=== PATIENT | male | born 1950 | race Caucasian/White ===

== ENCOUNTER 2025-10-25 16:00 | Inpatient (IN) | payer MEDICARE, SELFPAY ==
--- NOTE | 2025-10-25 16:14 | XRR_ITS ---
PROCEDURE INFORMATION: Exam: XR Right Hip Exam date and time: 10/25/2025 4:25 PM Age: 75 years old Clinical indication: Injury or trauma; Fall; Blunt trauma (contusions or hematomas); Right; Hip TECHNIQUE: Imaging protocol: Radiologic exam of the right hip. Views: 1 view hip with pelvis when performed. COMPARISON: No relevant prior studies available. FINDINGS: Bones/joints: Nondisplaced superomedial right acetabular fracture. Nondisplaced inferior pubic ramus fracture. Nondisplaced parasymphyseal pubic fracture. Moderate to severe hip osteoarthritis. Soft tissues: Unremarkable. XR/XR hip RT 2-3V wo/w pel* [id number] IMPRESSION: 1. Nondisplaced fractures involving the right inferior pubic ramus, parasymphyseal pubis, and acetabulum. 2. 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
--- NOTE | 2025-10-25 16:14 | XRR_ITS ---
PROCEDURE INFORMATION: Exam: XR Chest Exam date and time: 10/25/2025 4:20 PM Age: 75 years old Clinical indication: Injury or trauma; Fall; Blunt trauma (contusions or hematomas) TECHNIQUE: Imaging protocol: Radiologic exam of the chest. Views: 1 view. COMPARISON: No relevant prior studies available. FINDINGS: Lungs: Unremarkable. No consolidation. Pleural spaces: Unremarkable. No pleural effusion. No pneumothorax. Heart/Mediastinum: Unremarkable. No cardiomegaly. Bones/joints: Partially visualized displaced proximal right humerus fracture. Degenerative changes along the spine and shoulders. XR/XR chest 1V portable [id number] IMPRESSION: 1. No acute cardiopulmonary findings. 2. Partially visualized displaced proximal right humerus fracture.
--- NOTE | 2025-10-25 16:14 | XRR_ITS ---
PROCEDURE INFORMATION: Exam: XR Right Shoulder Exam date and time: 10/25/2025 4:22 PM Age: 75 years old Clinical indication: Injury or trauma; Fall; Blunt trauma (contusions or hematomas); Shoulder; Right TECHNIQUE: Imaging protocol: Radiologic exam of the right shoulder. Views: 2 or more views. COMPARISON: CR (CHEST, ) 10/25/2025 4:20 PM FINDINGS: Bones/joints: Comminuted proximal right humerus fracture involves the neck and greater tuberosity with approximately 1 shaft width anteromedial displacement of the dominant distal fragment at the neck. No dislocation. Acromioclavicular joint arthropathy. Soft tissues: Right shoulder soft tissue swelling. XR/XR shoulder RT min 2V* [id number] IMPRESSION: Comminuted displaced proximal right humerus fracture involving the neck and greater tuberosity.
[2025-10-25 16:22] VITALS: BP 85/65; PULSE 73; RESP 18; TEMP 36.6; O2SAT 96
--- NOTE | 2025-10-25 16:23 | ED_ITS ---
Documented by User: Caden Spaulding MD 10/25/25 16:25 HPI - Extremity Problem 2 General: Chief complaint: Extremity Injury, Upper Stated complaint: right shoulder pain s/p fall Time Seen by Provider: 10/25/25 16:05 Source: patient and EMS Mode of arrival: EMS Limitations: no limitations History of Present Illness: 75-year-old male who is here with EMS af ter he fell through a ramp. Patient complains of right shoulder along with right hip pain denies hitting his head denies any neck pain. States his pain is currently an 8 out of 10 has obvious deformity to right shoulder. He denies any loss of consciousness. Related Data Allergies Allergy/AdvReac Type Severity Reaction Status Date / Time No Known Allergies Allergy Verified 10/25/25 16:25 Review of Systems 2 Musc: Reports: extremity pain Physical Exam 2 Const: COMMON NORMALS: patient oriented x3 HENMT: COMMON NORMALS: normocephalic and atraumatic HEAD & SCALP: n ormocephalic and atraumatic Neck/C-Spine: COMMON NORMALS: full ROM and supple Chest: COMMONS NORMALS: normal inspection of the chest Resp: COMMON NORMALS: normal respiratory effort, No retractions, No use of accessory muscles and clear to auscultation bilaterally AUSCULTATION: clear to auscultation bilaterally Cardio: COMMON NORMALS: regular rate, regular rhythm and No murmurs present (Cardio) RATE: regular rate RHYTHM: regular rhythm GI: COMMON NORMALS: Normal to inspection, nondistended, normoactive bowel sounds present, Soft to palpation, non-tender and no masses PALPATION: Yes Soft to palpation Extremity: NARRATIVE EXTREMITY EXAM: Obvious deformity of right shoulder tenderness to touch distal pulse sensation intact tenderness over right hip Neuro: COMMON NORMALS: patient oriented x3, moves all extremities and no focal motor deficits Psych: COMMON NORMALS: mental status grossly normal, Normal thought process present and cooperative THOUGHT PROCESS: Normal thought process present Skin: COMMON NORMALS: no rashes or lesions noted and no wounds GENERAL SKIN EXAM: no rashes or lesions noted Course 2 Vital Signs: Vital signs: Vital Signs Temperature 98.0 F 10/25/25 20:50 Pulse Rate 88 10/25/25 20:50 Respiratory Rate 16 10/25/25 20:50 Blood Pressure 111/66 10/25/25 20:50 Pulse Oximetry 94 10/25/25 20:50 Oxygen Delivery Me thod Room Air 10/25/25 22:33 MDM - Extremity (Nontraumatic) Lab Data 10/26/25 03:23 10/26/25 03:23 Radiology Impressions Chest X-Ray 10/25/25 16:14 IMPRESSION: 1. No acute cardiopulmonary findings. 2. Partially visualized displaced proximal right humerus fracture. Hip/Pelvis X-Ray 10/25/25 16:14 IMPRESSION: 1. Nondisplaced fractures involving the right inferior pubic ramus, parasymphyseal pubis, and acetabulum. 2. 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 Shoulder X-Ray 10/25/25 16:14 IMPRESSION: Comminuted displaced proximal right humerus fracture involving the neck and greater tuberosity. Cervical Spine CT 10/25/25 16:28 IMPRESSION: No acute cervical spine fracture. Chest/Abdomen/Pelvis CT 10/25/25 16:28 IMPRESSION: 1. Comminuted fracture of the right proximal humerus with surrounding inflammatory changes. 2. No intrathoracic posttraumatic changes. IMPRESSION: 1. Fracture of bilateral pubic bones, bilateral inferior pubic rami, left superior pubic ramus and right puboacetabular junction with mild amount of blood in the extraperitoneal pre bladder region. 2. Severe degenerative hip changes. COMMENTS: Consistent with the [employer]'s Incidental Findings Committee white paper (J Am Claire Radiol 2018): Any incidental renal lesion less than 1 cm or classified as too small to characterize, or any incidental cystic renal lesion characterized as simple-appearing, is likely benign. No follow-up imaging is recommended for these lesions per consensus recommendations based on imaging criteria. Head CT 10/25/25 16:28 IMPRESSION: No acute intracranial findings. Forearm X-Ray 10/25/25 18:12 IMPRESSION: Acute distal radial and ulnar fractures as above. Laboratory Results WBC 26.18 10^3/uL (3.29-11.43) H 10/25/25 16:19 RBC 4.39 10^6/uL (3.85-5.65) 10/25/25 16:19 Hgb 13.50 g/dL (11.27-16.99) 10/25/25 16:19 Hct 42.2 % (37-53) 10/25/25 16:19 MCV 96.1 fl (82-101) 10/25/25 16:19 MCH 30.8 pg (27-33) 10/25/25 16:19 MCHC 32.0 g/dL (30-55) 10/25/25 16:19 RDW 12.4 % (12.1-15.1) 10/25/25 16:19 Plt Count 213 10^3/cmm (157-399) 10/25/25 16:19 MPV 10.6 fL (7.4-10.4) H 10/25/25 16:19 Neut % (Auto) 87.1 % 10/25/25 16:19 Lymph % (Auto) 5.1 % 10/25/25 16:19 Tillman % (Auto) 5.6 % 10/25/25 16:19 Eos % (Auto) 0.2 % 10/25/25 16:19 Baso % (Auto) 0.2 % 10/25/25 16:19 Neut # (Auto) 22.81 10^3/uL (1.8-7.7) H 10/25/25 16:19 Lymph # (Auto) 1.3 10^3/uL (0.8-4.8) 10/25/25 16:19 Tillman # (Auto) 1.5 10^3/uL (0.2-0.9) H 10/25/25 16:19 Eos # (Auto) 0.0 10^3/uL (0.0-0.8) 10/25/25 16:19 Baso # (Auto) 0.1 10^3/uL (0.0-0.1) 10/25/25 16:19 Nucleated RBC % (auto) 0 % 10/25/25 16:19 Nucleated RBCs # 0.0 /100WBC 10/25/25 16:19 PT 13.70 SECONDS (12.1-14.9) 10/25/25 18:17 INR 0.98 (0.8-1.2) 10/25/25 18:17 Sodium 140 mmol/L (136-145) 10/25/25 16:19 Potassium 3.3 mmol/L (3.5-5.1) L 10/25/25 16:19 Chloride 101 mmol/L (98-107) 10/25/25 16:19 Carbon Dioxide 20 mmol/L (22-29) L 10/25/25 16:19 Anion Gap 22.3 (5-19) H 10/25/25 16:19 BUN 11 mg/dL (8-23) 10/25/25 16:19 Creatinine 1.3 mg/dL (0.7-1.2) H 10/25/25 16:19 GFR Calculation Not Reportable 10/25/25 16:19 Glucose 168 mg/dL (65-115) H 10/25/25 16:19 Calculated Osmolality 293 mOsm/kg (285-295) 10/25/25 16:19 Calcium 9.4 mg/dL (8.5-10.5) 10/25/25 16:19 Total Bilirubin 0.5 mg/dL (0.15-1.2) 10/25/25 16:19 AST 30 U/L (0-40) 10/25/25 16:19 ALT 24 U/L (0-41) 10/25/25 16:19 Alkaline Phosphatase 85 U/L (40-130) 10/25/25 16:19 Total Protein 6.6 g/dL (6.6-8.7) 10/25/25 16:19 Albumin 4.0 g/dL (3.5-5.2) 10/25/25 16:19 Globulin 2.6 g/dL (1.3-4.6) 10/25/25 16:19 Discharge Plan Discharge Patient Disposition: Admitted As Inpatient Admit Provider: Gabriel Barbosa Clinical Impression: Closed displaced fracture of greater tuberosity of right humerus, initial encounter, Closed bilateral fracture of pubic rami, initial encounter, Closed nondisplaced fracture of right acetabulum, unspecified portion of acetabulum, initial encounter, Closed fracture of distal end of right radius, unspecified fracture morphology, initial encounter, Closed fracture of distal end of right ulna, unspecified fracture morphology, initial encounter Condition: Stable Coding Level of Care Code ED Film Waxer for Chg Fwd Documented by User: Dg Roland DO Christiano 10/26/25 07:11 HPI - Extremity Problem 2 General: Chief complaint: Extremity Injury, Upper Stated complaint: right shoulder pain s/p fall Time Seen by Provider: 10/25/25 16:05 Related Data Allergies Allergy/AdvReac Type Severity Reaction Status Date / Time No Known Allergies Allergy Verified 10/25/25 16:25 Course 2 Vital Signs: Vital signs: Vital Signs Temperature 98.0 F 10/25/25 20:50 Pulse Rate 88 10/25/25 20:50 Respiratory Rate 16 10/25/25 20:50 Blood Pressure 111/66 10/25/25 20:50 Pulse Oximetry 94 10/25/25 20:50 Oxygen Delivery Me thod Room Air 10/25/25 22:33 MDM - Extremity (Nontraumatic) Medical Decision Making This patient is multiple problems including nondisplaced fractures of the right inferior pubic ramus, parasymphyseal pubis and acetabulum. Shoulder x-ray shows a displaced proximal humerus fracture on the right, he has a right distal radius and ulnar fracture as well. Cervical spine CT along with chest abdomen pelvis CT do not reveal any solid organ damage or other fractures. Head CT is negative. The patient lives alone. He is nonambulatory, due to the pelvic fractures. He will likely require surgery for the wrist. Consulted orthopedics. They agreed to see the patient. Hospitalist will see the patient in the ER for admission. Lab Data 10/26/25 03:23 10/26/25 03:23 Radiology Impressions Chest X-Ray 10/25/25 16:14 IMPRESSION: 1. No acute cardiopulmonary findings. 2. Partially visualized displaced proximal right humerus fracture. Hip/Pelvis X-Ray 10/25/25 16:14 IMPRESSION: 1. Nondisplaced fractures involving the right inferior pubic ramus, parasymphyseal pubis, and acetabulum. 2. 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 Shoulder X-Ray 10/25/25 16:14 IMPRESSION: Comminuted displaced proximal right humerus fracture involving the neck and greater tuberosity. Cervical Spine CT 10/25/25 16:28 IMPRESSION: No acute cervical spine fracture. Chest/Abdomen/Pelvis CT 10/25/25 16:28 IMPRESSION: 1. Comminuted fracture of the right proximal humerus with surrounding inflammatory changes. 2. No intrathoracic posttraumatic changes. IMPRESSION: 1. Fracture of bilateral pubic bones, bilateral inferior pubic rami, left superior pubic ramus and right puboacetabular junction with mild amount of blood in the extraperitoneal pre bladder region. 2. Severe degenerative hip changes. COMMENTS: Consistent with the [employer]'s Incidental Findings Committee white paper (J Am Claire Radiol 2018): Any incidental renal lesion less than 1 cm or classified as too small to characterize, or any incidental cystic renal lesion characterized as simple-appearing, is likely benign. No follow-up imaging is recommended for these lesions per consensus recommendations based on imaging criteria. Head CT 10/25/25 16:28 IMPRESSION: No acute intracranial findings. Forearm X-Ray 10/25/25 18:12 IMPRESSION: Acute distal radial and ulnar fractures as above. Laboratory Results WBC 26.18 10^3/uL (3.29-11.43) H 10/25/25 16:19 RBC 4.39 10^6/uL (3.85-5.65) 10/25/25 16:19 Hgb 13.50 g/dL (11.27-16.99) 10/25/25 16:19 Hct 42.2 % (37-53) 10/25/25 16:19 MCV 96.1 fl (82-101) 10/25/25 16:19 MCH 30.8 pg (27-33) 10/25/25 16:19 MCHC 32.0 g/dL (30-55) 10/25/25 16:19 RDW 12.4 % (12.1-15.1) 10/25/25 16:19 Plt Count 213 10^3/cmm (157-399) 10/25/25 16:19 MPV 10.6 fL (7.4-10.4) H 10/25/25 16:19 Neut % (Auto) 87.1 % 10/25/25 16:19 Lymph % (Auto) 5.1 % 10/25/25 16:19 Tillman % (Auto) 5.6 % 10/25/25 16:19 Eos % (Auto) 0.2 % 10/25/25 16:19 Baso % (Auto) 0.2 % 10/25/25 16:19 Neut # (Auto) 22.81 10^3/uL (1.8-7.7) H 10/25/25 16:19 Lymph # (Auto) 1.3 10^3/uL (0.8-4.8) 10/25/25 16:19 Tillman # (Auto) 1.5 10^3/uL (0.2-0.9) H 10/25/25 16:19 Eos # (Auto) 0.0 10^3/uL (0.0-0.8) 10/25/25 16:19 Baso # (Auto) 0.1 10^3/uL (0.0-0.1) 10/25/25 16:19 Nucleated RBC % (auto) 0 % 10/25/25 16:19 Nucleated RBCs # 0.0 /100WBC 10/25/25 16:19 PT 13.70 SECONDS (12.1-14.9) 10/25/25 18:17 INR 0.98 (0.8-1.2) 10/25/25 18:17 Sodium 140 mmol/L (136-145) 10/25/25 16:19 Potassium 3.3 mmol/L (3.5-5.1) L 10/25/25 16:19 Chloride 101 mmol/L (98-107) 10/25/25 16:19 Carbon Dioxide 20 mmol/L (22-29) L 10/25/25 16:19 Anion Gap 22.3 (5-19) H 10/25/25 16:19 BUN 11 mg/dL (8-23) 10/25/25 16:19 Creatinine 1.3 mg/dL (0.7-1.2) H 10/25/25 16:19 GFR Calculation Not Reportable 10/25/25 16:19 Glucose 168 mg/dL (65-115) H 10/25/25 16:19 Calculated Osmolality 293 mOsm/kg (285-295) 10/25/25 16:19 Calcium 9.4 mg/dL (8.5-10.5) 10/25/25 16:19 Total Bilirubin 0.5 mg/dL (0.15-1.2) 10/25/25 16:19 AST 30 U/L (0-40) 10/25/25 16:19 ALT 24 U/L (0-41) 10/25/25 16:19 Alkaline Phosphatase 85 U/L (40-130) 10/25/25 16:19 Total Protein 6.6 g/dL (6.6-8.7) 10/25/25 16:19 Albumin 4.0 g/dL (3.5-5.2) 10/25/25 16:19 Globulin 2.6 g/dL (1.3-4.6) 10/25/25 16:19 All radiology interpretation(s) finalized by discharge Discharge Plan Discharge Patient Disposition: Admitted As Inpatient Admit Provider: Gabriel Barbosa Clinical Impression: Closed displaced fracture of greater tuberosity of right humerus, initial encounter, Closed bilateral fracture of pubic rami, initial encounter, Closed nondisplaced fracture of right acetabulum, unspecified portion of acetabulum, initial encounter, Closed fracture of distal end of right radius, unspecified fracture morphology, initial encounter, Closed fracture of distal end of right ulna, unspecified fracture morphology, initial encounter Condition: Stable Coding Level of Care Code ED Film Waxer for Mayra Ashton
[2025-10-25 16:24] VITALS: BP 85/65; PULSE 74; O2SAT 96
[2025-10-25 16:26] LABS: Hematocrit 42.2 % (37-53); Hemoglobin 13.50 g/dL (11.27-16.99); Mean Corpuscular HGB Conc 32.0 g/dL (30-55); Mean Corpuscular Hemoglobin 30.8 pg (27-33); Mean Corpuscular Volume 96.1 fl (82-101); Nucleated Red Blood Cells % 0 %; Platelet Count 213 10^3/cmm (157-399); Red Blood Count 4.39 10^6/uL (3.85-5.65); White Blood Count 26.18 10^3/uL (3.29-11.43)
--- NOTE | 2025-10-25 16:28 | CTR_ITS ---
PROCEDURE INFORMATION: Exam: CT Chest With Contrast; Diagnostic Exam date and time: 10/25/2025 5:28 PM Age: 75 years old Clinical indication: Injury or trauma; Fall; Generalized; Blunt trauma (contusions or hematomas) TECHNIQUE: Imaging protocol: Diagnostic computed tomography of the chest with contrast. Radiation optimization: All CT scans at this facility use at least one of these dose optimization techniques: automated exposure control; mA and/or kV adjustment per patient size (includes targeted exams where dose is matched to clinical indication); or iterative reconstruction. Contrast material: OMNI 350; Contrast volume: 100 ml; Contrast route: INTRAVENOUS (IV); COMPARISON: CR (CHEST, ) 10/25/2025 4:20 PM RADIATION DOSE METRICS: Total DLP (mGy-cm): 1613.48 FINDINGS: Lungs: Unremarkable. No consolidation. No masses. Pleural spaces: Unremarkable. No pneumothorax. No pleural effusion. Heart: Unremarkable. No cardiomegaly. No pericardial effusion. Lymph nodes: Unremarkable. No enlarged lymph nodes. Vasculature: Unremarkable. No aortic aneurysm. Bones/joints: There is a comminuted proximal right humeral fracture involving the greater tuberosity and anatomical neck with 1 shaft medial displacement. There are severe degenerative changes in the left glenohumeral joint. Congruent right glenohumeral joint. Chronic fracture deformities of the left 3rd and 4th ribs. The thoracic spine demonstrates mild degenerative changes at multiple levels. 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 Soft tissues: Swelling of the right anterior deltoid muscle with subcutaneous edema. PROCEDURE INFORMATION: Exam: CT Abdomen And Pelvis With Contrast Exam date and time: 10/25/2025 5:28 PM Age: 75 years old Clinical indication: Injury or trauma; Fall; Generalized; Blunt trauma (contusions or hematomas) TECHNIQUE: Imaging protocol: Computed tomography of the abdomen and pelvis with contrast. Radiation optimization: All CT scans at this facility use at least one of these dose optimization techniques: automated exposure control; mA and/or kV adjustment per patient size (includes targeted exams where dose is matched to clinical indication); or iterative reconstruction. Contrast material: OMNI 350; Contrast volume: 100 ml; Contrast route: INTRAVENOUS (IV); COMPARISON: CR (PELVIS, ) 10/25/2025 4:25 PM RADIATION DOSE METRICS: Total DLP (mGy-cm): 1613.48 FINDINGS: Liver: Normal. No mass. Gallbladder and biliary ducts: Normal. No calcified stones. No ductal dilation. Pancreas: Normal. No ductal dilation. Spleen: Normal. No splenomegaly. Adrenal glands: Normal. No mass. Kidneys and ureters: Right parapelvic renal cyst. There is no hydronephrosis. Stomach and bowel: Moderate diverticulosis is present in the distal colon. Appendix: No evidence of appendicitis. Intraperitoneal space: There is a small amount of free intraperitoneal fluid present. Vasculature: Unremarkable. No abdominal aortic aneurysm. Lymph nodes: Unremarkable. No enlarged lymph nodes. Urinary bladder: Unremarkable as visualized. Reproductive: Enlarged prostate gland with its median lobe impinging on the neck of the bladder. The prostate gland demonstrates nonspecific parenchymal calcifications. Bones/joints: There are mild degenerative changes of the sacroiliac joints. Minimally displaced fracture of the right pubic bone, right puboacetabular junction, right inferior pubic ramus, left inferior pubic ramus, left superior pubic ramus and left pubic bone. Bilateral severe facet joint arthropathy at L4-L5 and L5-S1 with mild anterolisthesis. There are severe degenerative changes of the hip joints. Soft tissues: Subcutaneous swelling of the anterior aspect of the pelvis. CT/CT chest abdpel w/*[id number] IMPRESSION: 1. Comminuted fracture of the right proximal humerus with surrounding inflammatory changes. 2. No intrathoracic posttraumatic changes. IMPRESSION: 1. Fracture of bilateral pubic bones, bilateral inferior pubic rami, left superior pubic ramus and right puboacetabular junction with mild amount of blood in the extraperitoneal pre bladder region. 2. Severe degenerative hip changes. COMMENTS: Consistent with the [employer]'s Incidental Findings Committee white paper (J Am Claire Radiol 2018): Any incidental renal lesion less than 1 cm or classified as too small to characterize, or any incidental cystic renal lesion characterized as simple-appearing, is likely benign. No follow-up imaging is recommended for these lesions per consensus recommendations based on imaging criteria.
--- NOTE | 2025-10-25 16:28 | CTR_ITS ---
PROCEDURE INFORMATION: Exam: CT Cervical Spine Without Contrast Exam date and time: 10/25/2025 5:20 PM Age: 75 years old Clinical indication: Injury or trauma; Fall; Blunt trauma TECHNIQUE: Imaging protocol: Computed tomography of the cervical spine without contrast. Radiation optimization: All CT scans at this facility use at least one of these dose optimization techniques: automated exposure control; mA and/or kV adjustment per patient size (includes targeted exams where dose is matched to clinical indication); or iterative reconstruction. COMPARISON: CR (CHEST, ) 10/25/2025 4:22 PM RADIATION DOSE METRICS: Total DLP (mGy-cm): 332.9 FINDINGS: Bones: Grade 1 degenerative spondylolisthesis at C7-T1. No acute fractures. No severe spinal or foraminal stenosis. Lungs: Lung apices are normal. Soft tissues: Unremarkable. CT/CT cervical spin wo con* [id number] IMPRESSION: No acute cervical spine fracture.
--- NOTE | 2025-10-25 16:28 | CTR_ITS ---
PROCEDURE INFORMATION: Exam: CT Head Without Contrast Exam date and time: 10/25/2025 5:20 PM Age: 75 years old Clinical indication: Injury or trauma; Fall TECHNIQUE: Imaging protocol: Computed tomography of the head without contrast. Radiation optimization: All CT scans at this facility use at least one of these dose optimization techniques: automated exposure control; mA and/or kV adjustment per patient size (includes targeted exams where dose is matched to clinical indication); or iterative reconstruction. COMPARISON: No relevant prior studies available. RADIATION DOSE METRICS: Total DLP (mGy-cm): 908.1 FINDINGS: Brain: No hemorrhage. No evidence of acute territorial infarct. Unremarkable white matter. No mass effect. Cerebral ventricles: No ventriculomegaly. Paranasal sinuses: Visualized sinuses are unremarkable. No fluid levels. Mastoid air cells: Visualized mastoid air cells are well aerated. Bones: Unremarkable. No acute fracture. Soft tissues: Unremarkable. CT/CT head wo con* [id number] IMPRESSION: No acute intracranial findings.
[2025-10-25] MEDS: ondansetron 2 mg/ML SDV 2 mL 4 MG IVP (16:49)
[2025-10-25] MEDS: HYDROmorphone 0.5 MG/0.5 ML INJ IVP ×2 (16:49→19:32)
[2025-10-25 16:51] LABS: Alanine Aminotransferase 24 U/L (0-41); Albumin Level 4.0 g/dL (3.5-5.2); Alkaline Phosphatase 85 U/L (40-130); Aspartate Amino Transferase 30 U/L (0-40); Blood Urea Nitrogen 11 mg/dL (8-23); Calcium 9.4 mg/dL (8.5-10.5); Carbon Dioxide 20 mmol/L (22-29); Chloride 101 mmol/L (98-107); Globulin 2.6 g/dL (1.3-4.6); Glucose 168 mg/dL (65-115); Osmolality Calculated 293 mOsm/kg (285-295); Sodium 140 mmol/L (136-145); Total Protein 6.6 g/dL (6.6-8.7)
[2025-10-25 16:52] LABS: Anion Gap 22.3 (5-19); Potassium 3.3 mmol/L (3.5-5.1)
--- NOTE | 2025-10-25 18:12 | XRR_ITS ---
PROCEDURE INFORMATION: Exam: XR Right Forearm Exam date and time: 10/25/2025 6:14 PM Age: 75 years old Clinical indication: Injury or trauma; Fall; Blunt trauma (contusions or hematomas); Arm, lower; Right; Additional info: Fall forearm pain TECHNIQUE: Imaging protocol: Radiologic exam of the right forearm. Views: 2 views. COMPARISON: No relevant prior studies available. FINDINGS: Bones/joints: There is an impacted distal radial metaphyseal fracture with dorsal angulation. The ulnar styloid is also fracture. Moderate arthrosis 1st carpometacarpal joint. Soft tissues: Normal. XR/XR forearm RT 2V [id number] IMPRESSION: Acute distal radial and ulnar fractures as above.
--- NOTE | 2025-10-25 18:36 | PC.NURSE ---
patient wrapped in numerous heated blankets upon arrival to ED.
[2025-10-25 18:43] LABS: INR 0.98 (0.8-1.2); Prothrombin Time 13.70 SECONDS (12.1-14.9)
[2025-10-25 19:41] VITALS: BP 106/71; PULSE 88; O2SAT 91
[2025-10-25 20:15] VITALS: BP 106/71; PULSE 93; O2SAT 96
[2025-10-25 20:50] VITALS: BP 111/66; PULSE 88; RESP 16; TEMP 36.7; O2SAT 94
[2025-10-25] MEDS: morphine 4 mg/mL SDV 1 mL 2 MG IVP (22:11)
--- NOTE | 2025-10-25 23:04 | P.HP_ITS ---
Providers/Chief Complaint 2 Admitting Physician: Gabriel Barbosa MD Chief Complaint: right shoulder pain s/p fall History of Present Illness Camacho Jacobo is a 75 year old male who presented to the ED after sustaining a fall at home. He states he was walking up his three steps when the floor gave out and he fell to the ground. He was unable to stand immediately after the fall and was on the ground for 3-4 hours calling for help. Eventually, a neighbor was able to assist and an ambulance was called who delivered him to our facility for evaluation. He denies any prodromal symptoms prior to the fall. He is able to move all fingers and toes but does mention some numbness to the right fingertips Medications/Allergies Allergies Allergy/AdvReac Type Severity Reaction Status Date / Time No Known Allergies Allergy Verified 10/25/25 16:25 Vitals/I&O/Wt Last Vital Signs Temp 98.0 F 10/25/25 20:50 Pulse 88 10/25/25 20:50 Resp 16 10/25/25 20:50 BP 111/66 10/25/25 20:50 Pulse Ox 94 10/25/25 20:50 O2 Del Method Room Air 10/25/25 22:33 10/25/25 10/25/25 10/26/25 14:59 22:59 06:59 Intake Total 1120 / 1120 Output Total 240 / 240 Balance 880 / 880 Weight last 48 hrs Weight 120.202 kg Physical Exam 2 Const: COMMON NORMALS: no acute distress, patient oriented x3, alert and well nourished Cardio: COMMON NORMALS: no JVD, regular rate, regular rhythm, S1 normal heart sound present, S2 normal heart sound present, No gallops present (Cardio), No clicks present (Cardio), No murmurs present (Cardio) and No rub (Cardio) GI: COMMON NORMALS: Normal to inspection, nondistended, normoactive bowel sounds present Extremity: OTHER: RUE swollen about the shoulder Neuro: COMMON NORMALS: patient oriented x3, CN's II-XII intact bilaterally and moves all extremities Skin: NARRATIVE SKIN EXAM: Bruising noted to the right shoulder Data 10/25/25 16:19 10/25/25 16:19 A&P Assessment and plan 1. Closed displaced fracture of greater tuberosity of right humerus, initial encounter: 2. Closed bilateral fracture of pubic rami, initial encounter: 3. Closed nondisplaced fracture of right acetabulum, unspecified portion of acetabulum, initial encounter: 4. Closed fracture of distal end of right radius, unspecified fracture morphology, initial encounter: 5. Closed fracture of distal end of right ulna, unspecified fracture morphology, initial encounter: 6. Fall (on) (from) other stairs and steps, initial encounter: Plan: Accidental fall Bilateral pubic rami fractures Right acetabular fracture Right ulnar fracture Right radial fracture Mild rhabdomyolysis Hypokalemia ?ELEUTERIO, unclear baseline Leukocytosis - ED has consulted orthopedic surgery. Will also contact them in the AM - Pain management with norco, baclofen, and dilaudid - 0.45 NS @ 100cc/hr tonight - Give 40mEq of potassium x1 - NPO after midnight - WBC elevation may be due to physical stressors. Recheck in the AM along with CPK level PDMP PDMP Reviewed: Not Reviewed Attestations 2 Medical Necessity Statement*: Anticipate stay greater than 2 midnights for inpatient management of multiple fractures Coding Level of Care Code Acute Code for Chg Fwd Diagnoses Closed displaced fracture of greater tuberosity of right humerus, initial encounter S42.251A Encounter type: initial encounter Fracture alignment: displaced Fracture type: closed Humerus Location: greater tuberosity Closed bilateral fracture of pubic rami, initial encounter S32.591A; S32.592A Encounter type: initial encounter Fracture type: closed Closed nondisplaced fracture of right acetabulum, unspecified portion of acetabulum, initial encounter S32.401A Encounter type: initial encounter Fracture alignment: nondisplaced Fracture type: closed Sublocation of acetabulum: unspecified portion of acetabulum Closed fracture of distal end of right radius, unspecified fracture morphology, initial encounter S52.501A Encounter type: initial encounter Fracture morphology: unspecified fracture morphology Fracture type: closed Radius location: distal Closed fracture of distal end of right ulna, unspecified fracture morphology, initial encounter S52.601A Encounter type: initial encounter Fracture morphology: unspecified fracture morphology Fracture type: closed Fall (on) (from) other stairs and steps, initial encounter W10.8XXA
[2025-10-26] VITALS (24 sets, daily range): BP systolic 100–169; BP diastolic 40–92; PULSE 58–83; RESP 7–18; TEMP 36.6–36.9; O2SAT 90–100
[2025-10-26] MEDS: HYDROcodone-acetaminophen 5-325 mg Tablet 1 TAB PO ×3 (02:28→13:11)
[2025-10-26 03:57] LABS: Hematocrit 34.1 % (37-53); Hemoglobin 11.40 g/dL (11.27-16.99); Mean Corpuscular HGB Conc 33.4 g/dL (30-55); Mean Corpuscular Hemoglobin 31.2 pg (27-33); Mean Corpuscular Volume 93.4 fl (82-101); Nucleated Red Blood Cells % 0 %; Platelet Count 168 10^3/cmm (157-399); Red Blood Count 3.65 10^6/uL (3.85-5.65); White Blood Count 12.58 10^3/uL (3.29-11.43)
[2025-10-26 04:27] LABS: Anion Gap 16.9 (5-19); Blood Urea Nitrogen 18 mg/dL (8-23); Calcium 8.7 mg/dL (8.5-10.5); Carbon Dioxide 24 mmol/L (22-29); Chloride 104 mmol/L (98-107); Creatinine Clr Calc Pharmacy 51.7759; Glucose 158 mg/dL (65-115); Osmolality Calculated 295 mOsm/kg (285-295); Potassium 4.9 mmol/L (3.5-5.1); Sodium 140 mmol/L (136-145)
--- NOTE | 2025-10-26 07:08 | XR_ITS ---
WS: [id number] Exam: XR wrist RT 2V [id number] Date/Time of Exam: 10/26/2025 7:47 AM Reason For Exam: right wrist fx DLP: Comparison 10/25/2025. Impacted comminuted fracture of the distal radius with moderate dorsal angulation and shortening. Nondisplaced ulnar styloid fracture. A cast stabilizes the wrist. XR/XR wrist RT 2V [id number] IMPRESSION: 1. Fracture distal radius showing improved alignment since the prior exam. Ulna r styloid fracture.
[2025-10-26 09:32] LABS: Glucose Urine UA Negative (Normal); Nitrate Urine Negative (Negative)
[2025-10-26 09:34] LABS: Add Urine Microscopic? YES; Universal Test for UA Present (0)
[2025-10-26 09:53] LABS: Specific Gravity, Urine 1.054 (1.005-1.030)
[2025-10-26 09:54] LABS: UA Slide Review UA Slide Review Perf
--- NOTE | 2025-10-26 10:04 | PC.CHAP ---
Pastoral Care Encounter/Spiritual Assessment Type of Contact [] Declined coding quality analyst visit [] Patient/Family/Request visit [] Outpatient visit [] Follow-up visit [] Physician referral [] Code/Alert [x] Routine visit [] Staff referral [] Actively dying [] Patient sleeping [] Family support [] [] Out of room [] Palliative care [] [] Receiving care in room [] Pre-surgical visit [] Trauma [] Long length of stay [] ICU visit [] Other: Relational/Emotional Strength [] Patient feels connected with others/family/visitors/staff [] Distress [] Loneliness/isolation [] Abandonment Spirituality of Patient [x] Person of Belle [] Attends Anglican of their Belle [x] Believes in Prayer [] Reads Bible or Gnosticist materials [] There are Spiritual issues to be addressed Corporate Director Of Human Resources Interventions [x] Prayer [x] Active listening [] Non-anxious presence [] Spiritual/emotional support [] Crisis/trauma care [] Spiritual counseling [] Bereavement support [] Provided bereavement packet [x] Provided Bible/devotional materials [] Provided toy/stuffed animal, coloring book to patient or family member [] Provided Communion [] Anointing/[place] [] Salvation [x] Completed spiritual assessment [] Other: Impact on Illness or Injury [] Angry [] Fearful [] Anxious [] Often cries [] Exhaustion [] Unable to work [] Unable to attend presybeterian [] Unable to walk/stand [] Unable to read [] Unable to drive [] Unable to eat/drink [] Unable to sleep [] Unable to be with family [] Patient intubated [] Other: Summary Time spent with patient 10 min
--- NOTE | 2025-10-26 12:19 | XR_ITS ---
WS: [id number] Exam: C-arm Fluoroscopy [id number] Date/Time of Exam: 10/26/2025 3:17 PM Reason For Exam: Right proximal humerus ORIF DLP: AP and lateral intraoperative images of the proximal RIGHT humerus are submitted. The images depict internal fixation involving a fracture of the neck and head of the humerus. Fracture alignment appears to be satisfactory for healing.
--- NOTE | 2025-10-26 12:21 | PM.CONSULT ---
Providers/Reason For Consult Consulting Physician/Specialty*: Brady Dupree, /orthopedic surgery Reason for Consult*: Comminuted displaced right proximal humerus fracture Comminuted displaced right distal radius fracture Bilateral pubic rami fractures Requesting Physician: Dr. Alvarado?emergency department Attending Physician: Yaya Dunn History of Present Illness History of Present Illness Camacho Jacobo is a 75 year old male sustained a fall at home states the floor went out was walking on his deck fell to the ground he was out in the cold and stranded out there for 3 to 4 hours called for help eventually neighbor was able to assist him brought to emergency department was found to have bilateral pubic rami fractures as well as a right proximal humerus fracture right distal radius fracture. He is complaining of left hand and currently set to get x-rays today. His pain in his left hand is at the base of his thumb. Patient denies any loss of consciousness. He is currently in a sling to right upper extremity and splint to the right wrist. No other complaints of pain at this time. Please refer to HPI from hospitalist provider: Camacho Jacobo is a 75 year old male who presented to the ED after sustaining a fall at home. He states he was walking up his three steps when the floor gave out and he fell to the ground. He was unable to stand immediately after the fall and was on the ground for 3-4 hours calling for help. Eventually, a neighbor was able to assist and an ambulance was called who delivered him to our facility for evaluation. He denies any prodromal symptoms prior to the fall. He is able to move all fingers and toes but does mention some numbness to the right fingertips Review of Systems General: Reports: 10 or more systems reviewed and unremarkable except in HPI and below Medications/Allergies Home Medications ?Medication ?Instructions ?Recorded ?Confirmed ?Last Taken ?Type ibuprofen 200 mg tablet (Advil) 400 mg PO Q6H PRN Fever Or Pain 10/26/25 10/26/25 10/24/25 20:00 History jrquhhefcnps-rck-exfip acid-vit 1 tab PO DAILY 10/26/25 10/26/25 10/24/25 History K-lycop 400 mcg-20 mcg-370 mcg tablet (Men's 50 Plus Multivitamin) vit 1 tab PO DAILY 10/26/25 10/26/25 10/24/25 History Y-jbfaefe-yewlvldbq-rutin-xpeu617 500 mg-50 mg-25 mg-40 mg tablet (Bioflex) Allergies Allergy/AdvReac Type Severity Reaction Status Date / Time No Known Allergies Allergy Verified 10/25/25 16:25 Current Medications Generic Name Dose Route Start Last Admin Trade Name Freq PRN Reason Stop Dose Admin Hydrocodone Bitart/Acetaminophen 1 tab 10/25/25 22:52 10/26/25 08:02 Hydrocodone-Acetaminophen 5-325 Mg Tablet PO 1 tab Q4H PRN Administration MODERATE PAIN Baclofen 10 mg 10/25/25 22:52 10/26/25 08:02 Baclofen 10 Mg Tablet PO 10 mg TID PRN Administration MUSCLE SPASMS Enoxaparin Sodium 40 mg 10/25/25 21:00 10/25/25 22:11 Enoxaparin 40 Mg/0.4 Ml Syringe SUBCUT 40 mg Q24H RIP Administration Sodium Chloride 1,000 mls @ 150 mls/hr 10/25/25 23:00 10/26/25 07:56 Sodium Chloride 0.45% IV 150 mls/hr .Q6H40M RIP Administration Vitals/I&O/Wt Last Vital Signs Temp 97.9 F 10/26/25 11:24 Pulse 80 10/26/25 11:24 Resp 16 10/26/25 11:24 BP 128/79 10/26/25 11:24 Pulse Ox 94 10/26/25 11:24 O2 Del Method Room Air 10/25/25 22:33 10/25/25 10/26/25 10/26/25 22:59 06:59 14:59 Intake Total 1120 / 1120 538.333 / 1658.333 460 / 460 Output Total 240 / 240 450 / 690 Balance 880 / 880 88.333 / 968.333 460 / 460 Weight last 48 hrs Weight 265 lb Physical Exam Narrative: Orthopedic examination: Examination of bilateral lower extremities demonstrates patient has no lower extremity deformities. He has tenderness palpation of the bilateral pubic rami. Patient has negative logroll examination bilaterally. Is able to wiggle toes plantarflex and dorsiflex ankle and distal pulses are palpable bilaterally compartments are soft and compressible distally. Examination right upper extremity currently sling on in place presenting ecchymosis and swelling about the right proximal humerus. Patient does endorse sensation to the axillary nerve sensation, unable to assess motor due to patient's pain and guarding. Patient has a sling on and in place no assessment range of motion performed of the elbow or the shoulder due to patient's pain. His fingertips are warm well-perfused brisk cap refill less than 2 seconds he does endorse sensation intact to light touch to the fingertips over the median radial and ulnar nerve distribution. Is able to perform all cardinal hand movements of AIN/PIN/radial/ulnar/median nerve appears to be intact. His right upper extremity compartments are soft and compressible in a splint supplied volar splint on the right wrist. Examination of the left upper extremity demonstrates that patient has bruising ecchymosis at the left thumb over the proximal phalanx. No appreciable deformity noted. Patient does have some tenderness over the CMC joint as well. No tenderness to palpation of the left shoulder or left elbow. Patient denies any tenderness palpation of the lumbar spine or posterior sacrum or SI joints. Negative pelvic compression test Urinary Catheter Management: Vivas: Cath Placed During This Visit: no Reason for Continuing Indwelling Catheter: Other Data 10/26/25 03:23 10/26/25 03:23 Xray Ortho: Radiologist's impression: Ordering Provider/Ordering MD: Caden Spaulding MD Date of Service: 10/25/25 Procedure(s): XR hip RT 2-3V wo/w pel* [id number] Accession Number(s): [id number] Report Number: [id number] PROCEDURE INFORMATION: Exam: XR Right Hip Exam date and time: 10/25/2025 4:25 PM Age: 75 years old Clinical indication: Injury or trauma; Fall; Blunt trauma (contusions or hematomas); Right; Hip TECHNIQUE: Imaging protocol: Radiologic exam of the right hip. Views: 1 view hip with pelvis when performed. COMPARISON: No relevant prior studies available. FINDINGS: Bones/joints: Nondisplaced superomedial right acetabular fracture. Nondisplaced inferior pubic ramus fracture. Nondisplaced parasymphyseal pubic fracture. Moderate to severe hip osteoarthritis. Soft tissues: Unremarkable. XR/XR hip RT 2-3V wo/w pel* [id number] IMPRESSION: 1. Nondisplaced fractures involving the right inferior pubic ramus, parasymphyseal pubis, and acetabulum. 2. 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 Ordering Provider/Ordering MD: Caden Spaulding MD Date of Service: 10/25/25 Procedure(s): XR shoulder RT min 2V* [id number] Accession Number(s): [id number] Report Number: [id number] PROCEDURE INFORMATION: Exam: XR Right Shoulder Exam date and time: 10/25/2025 4:22 PM Age: 75 years old Clinical indication: Injury or trauma; Fall; Blunt trauma (contusions or hematomas); Shoulder; Right TECHNIQUE: Imaging protocol: Radiologic exam of the right shoulder. Views: 2 or more views. COMPARISON: CR (CHEST, ) 10/25/2025 4:20 PM FINDINGS: Bones/joints: Comminuted proximal right humerus fracture involves the neck and greater tuberosity with approximately 1 shaft width anteromedial displacement of the dominant distal fragment at the neck. No dislocation. Acromioclavicular joint arthropathy. Soft tissues: Right shoulder soft tissue swelling. XR/XR shoulder RT min 2V* [id number] IMPRESSION: Comminuted displaced proximal right humerus fracture involving the neck and greater tuberosity. Ordering Provider/Ordering MD: Caden Spaulding MD Date of Service: 10/25/25 Procedure(s): CT chest abdpel w/*[id number] Accession Number(s): [id number] Report Number: [id number] PROCEDURE INFORMATION: Exam: CT Chest With Contrast; Diagnostic Exam date and time: 10/25/2025 5:28 PM Age: 75 years old Clinical indication: Injury or trauma; Fall; Generalized; Blunt trauma (contusions or hematomas) TECHNIQUE: Imaging protocol: Diagnostic computed tomography of the chest with contrast. Radiation optimization: All CT scans at this facility use at least one of these dose optimization techniques: automated exposure control; mA and/or kV adjustment per patient size (includes targeted exams where dose is matched to clinical indication); or iterative reconstruction. Contrast material: OMNI 350; Contrast volume: 100 ml; Contrast route: INTRAVENOUS (IV); COMPARISON: CR (CHEST, ) 10/25/2025 4:20 PM RADIATION DOSE METRICS: Total DLP (mGy-cm): 1613.48 FINDINGS: Lungs: Unremarkable. No consolidation. No masses. Pleural spaces: Unremarkable. No pneumothorax. No pleural effusion. Heart: Unremarkable. No cardiomegaly. No pericardial effusion. Lymph nodes: Unremarkable. No enlarged lymph nodes. Vasculature: Unremarkable. No aortic aneurysm. Bones/joints: There is a comminuted proximal right humeral fracture involving the greater tuberosity and anatomical neck with 1 shaft medial displacement. There are severe degenerative changes in the left glenohumeral joint. Congruent right glenohumeral joint. Chronic fracture deformities of the left 3rd and 4th ribs. The thoracic spine demonstrates mild degenerative changes at multiple levels. 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 Soft tissues: Swelling of the right anterior deltoid muscle with subcutaneous edema. PROCEDURE INFORMATION: Exam: CT Abdomen And Pelvis With Contrast Exam date and time: 10/25/2025 5:28 PM Age: 75 years old Clinical indication: Injury or trauma; Fall; Generalized; Blunt trauma (contusions or hematomas) TECHNIQUE: Imaging protocol: Computed tomography of the abdomen and pelvis with contrast. Radiation optimization: All CT scans at this facility use at least one of these dose optimization techniques: automated exposure control; mA and/or kV adjustment per patient size (includes targeted exams where dose is matched to clinical indication); or iterative reconstruction. Contrast material: OMNI 350; Contrast volume: 100 ml; Contrast route: INTRAVENOUS (IV); COMPARISON: CR (PELVIS, ) 10/25/2025 4:25 PM RADIATION DOSE METRICS: Total DLP (mGy-cm): 1613.48 FINDINGS: Liver: Normal. No mass. Gallbladder and biliary ducts: Normal. No calcified stones. No ductal dilation. Pancreas: Normal. No ductal dilation. Spleen: Normal. No splenomegaly. Adrenal glands: Normal. No mass. Kidneys and ureters: Right parapelvic renal cyst. There is no hydronephrosis. Stomach and bowel: Moderate diverticulosis is present in the distal colon. Appendix: No evidence of appendicitis. Intraperitoneal space: There is a small amount of free intraperitoneal fluid present. Vasculature: Unremarkable. No abdominal aortic aneurysm. Lymph nodes: Unremarkable. No enlarged lymph nodes. Urinary bladder: Unremarkable as visualized. Reproductive: Enlarged prostate gland with its median lobe impinging on the neck of the bladder. The prostate gland demonstrates nonspecific parenchymal calcifications. Bones/joints: There are mild degenerative changes of the sacroiliac joints. Minimally displaced fracture of the right pubic bone, right puboacetabular junction, right inferior pubic ramus, left inferior pubic ramus, left superior pubic ramus and left pubic bone. Bilateral severe facet joint arthropathy at L4-L5 and L5-S1 with mild anterolisthesis. There are severe degenerative changes of the hip joints. Soft tissues: Subcutaneous swelling of the anterior aspect of the pelvis. CT/CT chest abdpel w/*[id number] IMPRESSION: 1. Comminuted fracture of the right proximal humerus with surrounding inflammatory changes. 2. No intrathoracic posttraumatic changes. IMPRESSION: 1. Fracture of bilateral pubic bones, bilateral inferior pubic rami, left superior pubic ramus and right puboacetabular junction with mild amount of blood in the extraperitoneal pre bladder region. 2. Severe degenerative hip changes. COMMENTS: Consistent with the [employer]'s Incidental Findings Committee white paper (J Am Claire Radiol 2018): Any incidental renal lesion less than 1 cm or classified as too small to characterize, or any incidental cystic renal lesion characterized as simple-appearing, is likely benign. No follow-up imaging is recommended for these lesions per consensus recommendations based on imaging criteria. Patient: Camacho Jacobo Unit #: [id number] : 1950 Age/Sex: 75 / M ADM Date: 10/25/25 Loc: ER Room/Bed: Attending: Ordering Provider/Ordering MD: Dg Alvarado DO Date of Service: 10/25/25 Procedure(s): XR forearm RT 2V 91959 Accession Number(s): [id number] Report Number: [id number] PROCEDURE INFORMATION: Exam: XR Right Forearm Exam date and time: 10/25/2025 6:14 PM Age: 75 years old Clinical indication: Injury or trauma; Fall; Blunt trauma (contusions or hematomas); Arm, lower; Right; Additional info: Fall forearm pain TECHNIQUE: Imaging protocol: Radiologic exam of the right forearm. Views: 2 views. COMPARISON: No relevant prior studies available. FINDINGS: Bones/joints: There is an impacted distal radial metaphyseal fracture with dorsal angulation. The ulnar styloid is also fracture. Moderate arthrosis 1st carpometacarpal joint. Soft tissues: Normal. XR/XR forearm RT 2V [id number] IMPRESSION: Acute distal radial and ulnar fractures as above. atient: Camacho Jacobo Unit #: [id number] : 1950 Age/Sex: 75 / M ADM Date: 10/25/25 Loc: [facility] Room/Bed: [facility] Attending: Yaya Dunn MD Ordering Provider/Ordering MD: Brady Dupree Date of Service: 10/26/25 Procedure(s): XR wrist RT 2V 90423 Accession Number(s): [id number] Report Number: [id number] WS: [email or web address] Exam: XR wrist RT 2V [id number] Date/Time of Exam: 10/26/2025 7:47 AM Reason For Exam: right wrist fx DLP: Comparison 10/25/2025. Impacted comminuted fracture of the distal radius with moderate dorsal angulation and shortening. Nondisplaced ulnar styloid fracture. A cast stabilizes the wrist. XR/XR wrist RT 2V 92195 IMPRESSION: 1. Fracture distal radius showing improved alignment since the prior exam. Ulnar styloid fracture. Patient: Camacho Jacobo Unit #: [id number] : 1950 Age/Sex: 75 / M ADM Date: 10/25/25 Loc: [facility] Room/Bed: [facility] Attending: Yaya Dunn MD Ordering Provider/Ordering MD: Brady Dupree Date of Service: 10/26/25 Procedure(s): XR hand LT min 3V* [id number] Accession Number(s): [id number] Report Number: [id number] WS: [email or web address] Exam: XR hand LT min 3V* [id number] Date/Time of Exam: 10/26/2025 12:31 PM Reason For Exam: BRUISING, SWELLING, POST FALL DLP: There is a comminuted nondisplaced fracture of the mid and proximal aspects of the first proximal phalanx. No other acute fractures are identified. There are moderate degenerative changes in the IP and MP joints. Marked DJD at the first CMC joint. XR/XR hand LT min 3V* [id number] IMPRESSION: 1. Comminuted nondisplaced fracture of the first proximal phalanx. 2. Moderate degenerative changes. A&P Assessment and plan 1. Right humeral fracture: 2. Closed bilateral fracture of pubic rami, initial encounter: 3. Closed nondisplaced fracture of right acetabulum, unspecified portion of acetabulum, initial encounter: 4. Closed fracture of distal end of right radius, unspecified fracture morphology, initial encounter: 5. Closed fracture of distal end of right ulna, unspecified fracture morphology, initial encounter: 6. Fall (on) (from) other stairs and steps, initial encounter: Plan: Accidental fall Bilateral superior and inferior pubic rami fractures Right pubic root fracture Right distal radius fracture Right proximal humerus fracture displaced X-ray left thumb demonstrates nondisplaced left proximal phalanx fracture N.p.o. since midnight Pain control Nonweightbearing right upper extremity Sling right upper extremity Splint volar right wrist Apply thumb spica splint/brace to left hand Plan for pre and post ambulatory x-rays of the pelvis to assess stability of pubic rami fractures Hospitalist admitted patient as primary Orthopedics consulted To the OR today for right proximal humerus fracture open reduction internal fixation with humeral nail At this point in time patient has right proximal humerus fracture that is displaced with fracture at the surgical neck as well as greater tuberosity. At this point in time given the significant displacement patient is right-hand dominant we talked about his options in detail given the significant displacement this being more surgical neck would recommend fixation with a right humeral nail. We talked about the ins and outs procedure the risk benefits complication alternatives surgical nonsurgical treatment options. Risk of surge include but not limited to make a better make it worse injury to nerves vessels or tendons, persistent pain, hardware failure, fracture nonunion, shoulder arthritis. Understanding risk of surgery patient elects proceed with surgical invention all questions answered at this time. At this point in time we will plan on staging patient's fracture fixation. As far as the right proximal humerus we will start off today proceeding to the OR for a right proximal humeral fracture open reduction internal fixation with humeral nail. This will allow for him to get this stabilized in preparation for us proceeding with fixation for the right distal radius the right distal radius is out of acceptable parameters and does have noticeable dorsal angulation. We talked about this in detail and plan for this would be for right distal radius open reduction internal fixation later in the week likely or Sunday. As far as his left hand and review of his x-rays demonstrate a nondisplaced left proximal phalanx fracture of the thumb and goals for this would be to place patient into a thumb spica and treat this conservatively as there is no significant displacement for fixation. As for the patient's bilateral superior and inferior pubic rami fractures as well as the right pubic root fracture plan for this would be to perform pre and post ambulatory x-rays of AP pelvis inlet and outlet views after ambulation and see outpatient response. Unfortunately even with fixation I feel weightbearing through the right upper extremity with his humeral nail would not be ideal and we would have to possibly utilize platform walker through the left side given his thumb fracture. At this point in time we will start off with his right proximal humerus fracture and get this fixed he understands the ins and outs of the procedure risk benefits complication alternatives with surgical nonsurgical treatment options. At this point time through shared decision making he is ready pursue surgical intervention for the right proximal humerus today for right proximal humerus ORIF with humeral nail all questions been answered at this time. PDMP PDMP Reviewed: Not Reviewed Coding Level of Care Code Acute Code for Ch Fwd Diagnoses Right humeral fracture S42.301A Encounter type: initial encounter Humerus Location: proximal Fracture type: closed Fracture alignment: displaced Closed bilateral fracture of pubic rami, initial encounter S32.591A; S32.592A Closed nondisplaced fracture of right acetabulum, unspecified portion of acetabulum, initial encounter S32.401A Closed fracture of distal end of right radius, unspecified fracture morphology, initial encounter S52.501A Closed fracture of distal end of right ulna, unspecified fracture morphology, initial encounter S52.601A Fall (on) (from) other stairs and steps, initial encounter W10.8XXA Time Spent (min) 65
--- NOTE | 2025-10-26 12:25 | XR_ITS ---
WS: [email or web address] Exam: XR hand LT min 3V* [id number] Date/Time of Exam: 10/26/2025 12:31 PM Reason For Exam: BRUISING, SWELLING, POST FALL DLP: There is a comminuted nondisplaced fracture of the mid and proximal aspects of the first proximal phalanx. No other acute fractures are identified. There are moderate degenerative changes in the IP and MP joints. Marked DJD at the first CMC joint. XR/XR hand LT min 3V* [id number] IMPRESSION: 1. Comminuted nondisplaced fracture of the first proximal phalanx. 2. Moderate degenerative changes.
--- NOTE | 2025-10-26 12:38 | P.PN_ITS ---
Subjective 2 Subjective: Intermittent pain requiring pain medication. Fell through the staircase at his house when it broke underneath him while taking out trash and got stuck there for 4 hours until some neighbors had found him. Vitals/I&O/Wt Last Vital Signs Temp 97.9 F 10/26/25 11:24 Pulse 80 10/26/25 11:24 Resp 16 10/26/25 11:24 BP 128/79 10/26/25 11:24 Pulse Ox 94 10/26/25 11:24 O2 Del Method Room Air 10/25/25 22:33 10/25/25 10/26/25 10/26/25 22:59 06:59 14:59 Intake Total 1120 / 1120 538.333 / 1658.333 460 / 460 Output Total 240 / 240 450 / 690 Balance 880 / 880 88.333 / 968.333 460 / 460 Weight last 48 hrs Weight 120.202 kg Physical Exam 2 Const: COMMON NORMALS: patient oriented x3 and alert GENERAL APPEARANCE: c ooperative ORIENTATION/CONSCIOUSNESS: Yes awake HENMT: COMMON NORMALS: oropharynx normal Neck/C-Spine: COMMON NORMALS: no JVD Resp: COMMON NORMALS: normal respiratory effort and clear to auscultation bilaterally AUSCULTATION: clear to auscultation bilaterally Cardio: COMMON NORMALS: no JVD, regular rhythm, S1 normal heart sound present, S2 normal heart sound present and No murmurs present (Cardio) RHYTHM: regular rhythm HEART SOUNDS: S1 normal heart sound present and S2 normal heart sound present GI: COMMON NORMALS: Normal to inspection, nondistended, normoactive bowel sounds present, Soft to palpation and non-tender PALPATION: Yes Soft to palpation Extremity: COMMON NORMALS: no joint enlargement and no pedal edema OTHER: Right arm in a sling Bruising, deformity of the left thumb. Very small abrasion at the proximal end of the distal phalanx on palmar surface. Neuro: COMMON NORMALS: patient oriented x3 and moves all extremities S ENSORIUM/ORIENTATION: Yes alert Skin: COMMON NORMALS: no rashes or lesions noted GENERAL SKIN EXAM: no rashes or lesions noted Urinary Catheter Management: Vivas: Cath Placed During This Visit: no Reason for Continuing Indwelling Catheter: Other Data 10/27/25 10:46 10/27/25 10:46 A&P Assessment and plan 1. Right humeral fracture: Per discussion with orthopedic surgeon to OR for ORIF repair of humeral fracture by orthopedics on 10/26. 2. Closed fracture of distal end of right radius, unspecified fracture morphology, initial encounter: Second procedure anticipated for ORIF of distal right radius fracture. Continue pain control, hydrocodone, IV Dilaudid as needed. Add acetaminophen. Continue baclofen as needed. 3. Closed fracture of distal end of right ulna, unspecified fracture morphology, initial encounter: 4. Closed bilateral fracture of pubic rami, initial encounter: Orthopedics obtaining pre and postoperative x-rays to assess stability of the pelvis with pubic rami fractures. Pending PT assessment. May need platform walker given right humeral fracture and left arm fracture. Pending further disposition planning. Discussed with case management. Reviewed CBC. Repeat blood counts. 5. Closed nondisplaced fracture of right acetabulum, unspecified portion of acetabulum, initial encounter: Reviewed CT abdomen and pelvis. 6. ELEUTERIO (acute kidney injury): Reviewed chemistry. ELEUTERIO versus CKD, unknown baseline, creatinine 1.3, with some worsening to 1.7. Avoid NSAIDs, nephrotoxins. At home on ibuprofen, discontinue. Possibly NSAID induced ELEUTERIO. Does have mild rhabdomyolysis. 7. UTI (urinary tract infection): UA reviewed, 21 -50 RBC, 21-50 WBC, possible UTI. Start Rocephin. Follow-up urine culture. 8. Fracture of thumb, left, closed: Noted mild deformity and bruising of the left thumb. X-ray obtained to assess for fracture. Small abrasion on the proximal end of the distal phalanx. Tetanus shot requested. 9. Fall (on) (from) other stairs and steps, initial encounter: Plan: Accidental fall Bilateral pubic rami fractures Right acetabular fracture Right ulnar fracture Right radial fracture Mild rhabdomyolysis Hypokalemia ?ELEUTERIO, unclear baseline: Leukocytosis Rhabdomyolysis: Reviewed CK. Repeat level. PDMP PDMP Reviewed: Not Reviewed Attestations 2 Medical Necessity Statement*: Continue admission for assessment management of multiple fractures as above, further assessment of pelvic fracture, ELEUTERIO, treatment of UTI, postdischarge planning and arrangements. Diagnoses Right humeral fracture S42.301A Encounter type: initial encounter Fracture alignment: displaced Fracture type: closed Humerus Location: proximal Closed fracture of distal end of right radius, unspecified fracture morphology, initial encounter S52.501A Encounter type: initial encounter Fracture morphology: unspecified fracture morphology Fracture type: closed Radius location: distal Closed fracture of distal end of right ulna, unspecified fracture morphology, initial encounter S52.601A Encounter type: initial encounter Fracture morphology: unspecified fracture morphology Fracture type: closed Closed bilateral fracture of pubic rami, initial encounter S32.591A; S32.592A Encounter type: initial encounter Fracture type: closed Closed nondisplaced fracture of right acetabulum, unspecified portion of acetabulum, initial encounter S32.401A Encounter type: initial encounter Fracture alignment: nondisplaced Fracture type: closed Sublocation of acetabulum: unspecified portion of acetabulum ELEUTERIO (acute kidney injury) N17.9 UTI (urinary tract infection) N39.0 Fracture of thumb, left, closed S62.502A Fall (on) (from) other stairs and steps, initial encounter W10.8XXA
[2025-10-26] MEDS: cefTRIAXone 1,000 mg SDV 1000 MG IVP (13:11)
[2025-10-26] MEDS: tetanus-diphtheria tox (adult) 0.5 mL SYRINGE IM (14:21)
--- NOTE | 2025-10-26 15:17 | SC_ITS ---
WS: [id number] Exam: C-arm Fluoroscopy [id number] Date/Time of Exam: 10/26/2025 3:17 PM Reason For Exam: Right proximal humerus ORIF DLP: AP and lateral intraoperative images of the proximal RIGHT humerus are submitted. The images depict internal fixation involving a fracture of the neck and head of the humerus. Fracture alignment appears to be satisfactory for healing.
--- NOTE | 2025-10-26 15:27 | ANES.PREANE2 ---
Pre-Anesthetic Assessment Height/Weight: Height 1.85 m Weight 120.202 kg Temp Pulse Resp BP Pulse Ox O2 Del Method 98.4 F 80 18 146/82 94 Room Air 10/26/25 15:23 10/26/25 15:23 10/26/25 15:23 10/26/25 15:23 10/26/25 15:23 10/26/25 15:23 Operation Date: 10/26/25 17:30 Proposed Procedures p IM Proximal Humeral Nail Insertion(Right) - Brady Radford, DO Operation Date: 10/29/25 16:55 Proposed Procedures p ORIF Distal Radius(Right) - Brady Leia, DO Familial anesthetic complications: None Was Beta [place] taken within 24 hours: N/A Was Clonidine taken within 24 hours: N/A Last intake: > 8hrs Social Alcohol and Tobacco Exam alert, oriented x 3, clear to auscultation bilaterally and regular rate & rhythm Anesthetic Plan ASA status: 1 Anesthesia: General Risk of > 500 ml blood loss (7ml/kg in children): No Medications/Allergies Home Medications ?Medication ?Instructions ?Recorded ?Confirmed ?Last Taken ?Type ibuprofen 200 mg tablet (Advil) 400 mg PO Q6H PRN Fever Or Pain 10/26/25 10/26/25 10/24/25 20:00 History uiarahnxhngd-dfv-gsqbn acid-vit 1 tab PO DAILY 10/26/25 10/26/25 10/24/25 History K-lycop 400 mcg-20 mcg-370 mcg tablet (Men's 50 Plus Multivitamin) vit 1 tab PO DAILY 10/26/25 10/26/25 10/24/25 History [id number]-[id number]-[id number]-[id number] 500 mg-50 mg-25 mg-40 mg tablet (Bioflex) Allergies Allergy/AdvReac Type Severity Reaction Status Date / Time No Known Allergies Allergy Verified 10/25/25 16:25 Current Medications Generic Name Dose Route Start Last Admin Trade Name Freq PRN Reason Stop Dose Admin Hydrocodone Bitart/Acetaminophen 1 tab 10/25/25 22:52 10/26/25 13:11 Hydrocodone-Acetaminophen 5-325 Mg Tablet PO 1 tab On Hold: 10/26/25 15:11 Q4H PRN Administration Comment: Order held by Process MODERATE PAIN Transfer Baclofen 10 mg 10/25/25 22:52 10/26/25 08:02 Baclofen 10 Mg Tablet PO 10 mg On Hold: 10/26/25 15:11 TID PRN Administration Comment: Order held by Process MUSCLE SPASMS Transfer Ceftriaxone Sodium 1,000 mg 10/26/25 12:45 10/26/25 13:11 Ceftriaxone 1,000 Mg Sdv IVP 1,000 mg On Hold: 10/26/25 15:11 Q24H RIP Administration Comment: Order held by Process Protocol Transfer Enoxaparin Sodium 40 mg 10/25/25 21:00 10/25/25 22:11 Enoxaparin 40 Mg/0.4 Ml Syringe SUBCUT 40 mg On Hold: 10/26/25 15:11 Q24H RIP Administration Comment: Order held by Process Transfer Sodium Chloride 1,000 mls @ 150 mls/hr 10/25/25 23:00 10/26/25 14:54 Sodium Chloride 0.45% IV 150 mls/hr On Hold: 10/26/25 15:11 .Q6H40M RIP Administration Comment: Order held by Process Transfer Data Anesthesia 10/26/25 03:23 10/26/25 03:23 Short CBC 10/25/25 10/26/25 Range/Units 16:19 03:23 WBC 26.18 H 12.58 H (3.29-11.43) 10^3/uL Hgb 13.50 11.40 (11.27-16.99) g/dL Hct 42.2 34.1 L (37-53) % MCV 96.1 93.4 (82-101) fl Plt Count 213 168 (157-399) 10^3/cmm Neut % (Auto) 87.1 83.7 % Neut # (Auto) 22.81 H 10.53 H (1.8-7.7) 10^3/uL BMP 10/25/25 10/26/25 16:19 03:23 Sodium 140 140 Potassium 3.3 L 4.9 Chloride 101 104 Carbon Dioxide 20 L 24 BUN 11 18 Creatinine 1.3 H 1.7 H Glucose 168 H 158 H Calcium 9.4 8.7 Cardiac Enzymes 10/25/25 10/26/25 Range/Units 21:14 03:23 Creatine Kinase 548 H* 775 H* (39-308) U/L Liver Function 10/25/25 Range/Units 16:19 Total Bilirubin 0.5 (0.15-1.2) mg/dL AST 30 (0-40) U/L ALT 24 (0-41) U/L Alkaline Phosphatase 85 (40-130) U/L Albumin 4.0 (3.5-5.2) g/dL Urine 10/26/25 Range/Units 09:18 Urine Color Yellow (Yellow) Urine Appearance Cloudy A (CLEAR) Urine pH 5.0 (5-7) Ur Specific [place] 1.054 H (1.005-1.030) Urine Protein 1+ A (Negative) Urine Glucose (UA) Negative (Normal) Urine Ketones Trace (Negative) Urine Nitrate Negative (Negative) Urine Bilirubin Negative (Negative) Ur Leukocyte Esterase 1+ A (Negative) Urine RBC 21-50 H (0-2) /hpf Urine WBC 21-50 H (0-5) /hpf Coags 10/25/25 18:17 PT 13.70 INR 0.98
[2025-10-26] MEDS: acetaminophen 1,000 MG/100 ML PIGGYBACK 400 MG IV (15:38)
--- NOTE | 2025-10-26 16:35 | W.PM.OPSUD ---
Surgery/Procedure H&P Update DATE OF PROCEDURE: October 26, 2025 DATE H&P PERFORMED: 10/26/25 H&P UPDATE INFORMATION: I have reviewed H&P completed within last 30 days, I have examined patient prior to procedure and No changes to prior documentation PREOP DIAGNOSIS: Right proximal humerus fracture displaced PRIMARY INDICATION FOR PROCEDURE: Displaced right proximal humerus fracture PLANNED PROCEDURE: Operation Date: 10/26/25 17:30 Proposed Procedures p IM Proximal Humeral Nail Insertion(Right) - Brady Dupree DO Operation Date: 10/29/25 16:55 Proposed Procedures p ORIF Distal Radius(Right) - Brady Dupree DO
[2025-10-26] MEDS: ceFAZolin 2,000 MG in sodium chloride 0.9% (plus) 50 ML 100 MG IV (17:11)
[2025-10-26] MEDS: BUPivacaine 0.5% INJ 30 mL 20 ML INJECTION (18:57)
[2025-10-26] MEDS: lidocaine 2% INJ 20 mL INJECTION (18:58)
--- NOTE | 2025-10-26 19:25 | P.BOP_ITS ---
Note is entered later as this was attempted to be documented when Co[employer] system was down. Date of note origin and time is correct Date of Procedure: [10/26/2025] Surgeon: [Brady Dupree DO] Recoil Spring Winder(s): [Roland Dupree PA-C] Procedure(s) performed: Right proximal humerus fracture open reduction internal fixation with humeral nail Findings of the procedure(s): [Patient underwent procedure as planned without issues or complications taken to recovery in stable] Estimated blood loss: [125 mL] Specimen(s) removed: [None] Post-operative diagnosis: [Right proximal humerus fracture displaced and angulated]
--- NOTE | 2025-10-26 19:30 | P.OP_ITS ---
Operative Report Date of procedure: October 26, 2025 Pre-op diagnosis: Right proximal humerus fracture displaced and angulated Post-op diagnosis: Same Post-op findings: See operative report narrative Procedure done: Right proximal humerus fracture open reduction internal fixation with humeral nail Implants: [place] proximal humeral nail 8 mm x 150 mm Distal locking screws 4 mm x 32 mm, 4 mm x 34 mm Proximal locking screws 5 x 57.5 mm, 5 x 55 mm and, 5 x 50 mm, 5 x 40 mm Surgeon: Brady Dupree DO Production Superintendent Hydro: Roland Dupree PA-C: FIDELINA was necessary for assistance in this case with arm positioning, assistance in holding and maintaining reduction, assistance with retraction and protection of neurovascular structures as well as assistance in implantation with fracture fixation, assistance and wound closure and dressing application. Anesthesia: General Estimated blood loss: 125 mL IV fluids: 900 mL Complications: None Findings: See operative report narrative Condition: stable Disposition: floor Brief History: Patient is a 75-year-old male who sustained a fall through his deck and has multiple fractures. At this point in time he has a significantly displaced and angulated proximal humerus fracture as well as same side distal radius fracture at this point time given the displacement of the proximal humerus and pain we talked about his treatment options in detail about addressing this in a two- stage fashion with first try to fix and stabilize the proximal humerus allow for a couple days for this to stabilize and then proceeding with the distal radius at a later date this week hopefully during his hospitalization he does have bilateral pubic rami's and will address this with goals of pre and post ambulatory. He is right-hand dominant and through shared decision making he like to pursue surgical invention for right proximal humerus open duction internal fixation with humeral nail. He understands enzymes procedure risk benefits complication alternative surgical nonsurgical treatment options. Understanding risk of surgery elects proceed with surgical intervention all questions answered at this time. Will proceed to the OR today. Procedure: Patient was seen by in the preoperative holding area. Consent was reviewed and signed with patient. Correct extremity was then marked. Patient was seen evaluated by anesthesia once cleared for surgery patient was taken back to the operative suite he was transported onto the OR table all bony prominences well- padded patient appropriate secured to bed. Patient then subsequent underwent anesthesia per the anesthesia apartment once properly anesthetized he was placed in appropriate beachchair positioning appropriate secured of his head making sure this was in cervical spine neutral position all bony prominences were patient will was well-padded appropriate secured to the bed. At this point in time the right upper extremity was then prepped and draped in standard orthopedic fashion. Final timeout performed. Patient received appropriate preoperative antibiotics. This point in time fluoroscopic imaging was brought in patient found to have significant displaced angulated proximal humerus fracture that is comminuted with greater tuberosity fracture fragment as well as surgical neck fracture fragment and comminution with significant displacement angulation this point time I attempted and performed closed reduction and was able to hold this po sitioning and hold the proximal humerus in satisfactory position alignment this was held then throughout the procedure by my PA and faculty i on call medical assistant. Prior to any types of fixation after we are satisfied with her closed reduction and ability to perform this I then did proceed with plan on performing a proximal humeral nail. At this point in time I then subsequently a small incision off the anterolateral aspect of the acromion sharp scalpel incision was made through skin and subcutaneous tissue then subsequently maintain exact hemostasis throughout the dissection. I then split the anterior third raphae of the deltoid coming down directly into the subacromial space immediately encountered fracture hematoma and this was evacuated to its entirety. I then subsequent identified the rotator cuff there is no appreciable tear in the rotator cuff however this was attached to the fracture fragment of the greater tuberosity as a result I subsequently placed a #2 FiberWire and this to hold this while performing the nail placement and screw fixation to help have appropriate fixation of the tuberosity fracture fragment. At this point in time once this was appropriate secured I then subsequently had my faculty i on call medical assistant hold the rotator cuff suture down to keep the greater tuberosity fracture fragment in good alignment and then subsequently pulled traction on the arm and once I was in satisfactory reduction of the proximal humerus fracture I then started with my starting point guidewire was then advanced and just medial to the lateral entry point as patient did have a slightly overhang of the acromion and was any was unable to fully get up your center position on the AP once I was satisfied with this position as far medial as I could get I then switched to a lateral and consistent with being in the central canal position. This wire was then advanced to appropriate depth and then subsequently used a lot utilize a standard opening reamer. At this point in time given the was a shorter fracture fragment plan was for a proximal humeral nail. I then called for a Daniel proximal humeral nail which 8 mm x 150 mm this was appropriately loaded. I then subsequently once again with my faculty i on call medical assistant held the reduction I then subsequently placed the proximal humeral nail the appropriate depth. I did not have to ream given patient did have fairly open canal. At this point time once it was in francisco javier ropriate depth I then subsequently started off with my direct lateral screw proximally this was then triple sleeve was then advanced down to bone once again holding the rotator cuff and position and the greater tuberosity fracture fragment. This was then subsequently drilled measured appropriate length screw was placed with good fixation. Care was made to keep this out of the joint was confirmed with fluoroscopic imaging. At this point in time I placed 1 more additional oblique screw which was then subsequently utilized the drill sleeve sharp scalpel incision just through skin only then utilized hemostats directly down to bone the triple sleeve was then subsequently advanced and then subsequently drilled measured and placed appropriate length screw for the oblique to get 2 points of fixation proximally I then switched and placed my 2 distal locking screws which subsequently triple sleeve and 2 incisions were made blunt dissection to bone and then these were subsequently drilled measured appropriate length screws to get distal fixation at this point in time I was satisfied with my fracture reduction and positioning as well as nail placement and initial fixation. At this point in time to augment for further fixation of the head I placed an additional oblong screw and then subsequently switch the guide sleeve for an anterior to posterior to increase fixation strength. I then subsequently had this make a small stab incision anteriorly this was then bluntly probed down to bone with hemostat and then subsequently the drill sleeve was then advanced and subsequently drilled measured appropriate length screw was then placed. This point I made 4 points of fixation with screws proximally and then 2 distally the arm was then taken through active range of motion of the fracture stable and reduced I then underwent live fluoroscopy imaging and confirmed all the screws were within the humeral head and no intra-articular involvement. This point time was satisfied with our reduction and fracture fixation this completed surgery for the proximal humerus the criminal investigative agent guide and guide sleeve was then subsequently removed and then final fluoroscopy images were then subsequently taken. Thoroughly irrigation performed hemostasis satisfactory I then closed the deltopectoral and fascial and 0 Vicryl suture and then subcutaneous 2-0 Vicryl suture and then bernadette for skin's for all incision sites was then dressed with Silverlon and sling was then applied. We did take down the old volar splint and then placed a new volar splint on the distal radius on the same side. Patient was then awakened from anesthesia and taken to recovery in stable condition Disposition: Patient taken to Recovery in stable condition will return to the floor postoperatively. Patient received appropriate discharge instructions nonweightbearing to the right upper extremity will plan for hopefully fixation later this week for the right distal radius fracture
--- NOTE | 2025-10-26 20:11 | PC.NURSE ---
2007 - anesthesia notified of pts lack of responsiveness to verbal stimuli - oral airway remains in place - instructed to give Narcan 2009 - IVP Narcan given at 40cg/ml - 2011 - 40mcg/ml - pt remains with no response - vital signs stable - remains on room air 2013 - additional 40mcg/ml given per this nurse 2015 - pt remains unchanged with oral airway in place - additional 40mcg/ml IVP per this nurse - 2018 - pt arouses to verbal stimuli - airway out - NC placed on pt
--- NOTE | 2025-10-26 20:24 | PC.NURSE ---
2023 - pt again with decrese in responsiveness per anesthesia - give additional 40mcg/ml narcan
--- NOTE | 2025-10-26 20:36 | PC.NURSE ---
2035 - Sherrie Galloway CRNA notified of pts inability to follow commands -
--- NOTE | 2025-10-26 20:41 | PC.NURSE ---
2037 - Dr Miller notified of pts current condition - per Dr Miller call stroke alert - 2039 - stroke alert called overhead
--- NOTE | 2025-10-26 20:45 | PC.NURSE ---
2043 - stroke team at bedside - Gray RN at [facility] - blood glucose at 129 - 2046 - Dr Dupree at bedside - awaiting hospitalist to pacu - stroke team remains - pt continues to not follow verbal commands - see vital sign flow sheet - remains on 2L NC
--- NOTE | 2025-10-26 20:48 | PC.NURSE ---
2047 - Dr Miller at pts bedside to assess - Dr Quinones obtain report via telephone call given per Carrol - 2049 - Dr Barbosa at bedside in PACU -
--- NOTE | 2025-10-26 20:51 | CTR_ITS ---
PROCEDURE INFORMATION: Exam: CT Head Without Contrast Exam date and time: 10/26/2025 9:06 PM Age: 75 years old Clinical indication: Stroke-like symptoms; Altered mental status/memory loss; Additional info: Stroke alert - post op TECHNIQUE: Imaging protocol: Computed tomography of the head without contrast. Radiation optimization: All CT scans at this facility use at least one of these dose optimization techniques: automated exposure control; mA and/or kV adjustment per patient size (includes targeted exams where dose is matched to clinical indication); or iterative reconstruction. Other technique: STROKE PROTOCOL was implemented. COMPARISON: CT head wo con* [id number] 10/25/2025 5:20 PM RADIATION DOSE METRICS: Total DLP (mGy-cm): 785.99 FINDINGS: Brain: Age related diffuse parenchymal volume loss. No recent infarct, intracranial bleed or mass effect. Cerebral ventricles: Ex vacuo dilatation of the ventricles. Paranasal sinuses: Visualized sinuses are unremarkable. No fluid levels. Mastoid air cells: Visualized mastoid air cells are well aerated. Bones: Unremarkable. No acute fracture. Soft tissues: Unremarkable. CT/CT head wo con* [id number] IMPRESSION: No large territorial infarct or intracranial bleed. ASSESSMENT: ASPECTS ([place] Stroke Program Early CT Score) is 10.
--- NOTE | 2025-10-26 20:52 | PC.NURSE ---
2049 - Dr at bedside attempting [facility] stroke scale per Dr Quinones order
--- NOTE | 2025-10-26 21:00 | PC.NURSE ---
2100 - pt taken via bed with stroke team to CT scanner
--- NOTE | 2025-10-26 21:08 | P.MISC_ITS ---
Miscellaneous Note Purpose of Documentation: Orthopedic note update: Patient had been recovering in PACU and was currently was in another procedure case. After the case was completed this was brought in and patient had had a stroke alert was called and being assessed by the anesthetic and internal medicine providers at this point in time patient getting worked up for possible stroke due to him having altered mental status in the PACU. I subsequently called and spoke with patient's neighbor who is his point of contact and notify at 9:08 PM this evening patient's name is Amada Grewal and spoke with patient surgery going well but having difficulty anesthesia postoperatively and currently being worked up rule out stroke. She appreciated update. This point in time orthopedics will continue to follow appreciate internal medicine's workup and management. Pending how patient's workup is we will determine possib ility of surgical intervention for right distal radius later this week. Patient confused on my evaluation in PACU. Brady Dupree, DO Orthopedic surgery
--- NOTE | 2025-10-26 21:13 | CTR_ITS ---
PROCEDURE INFORMATION: Exam: CTA Head With Contrast, Arteriography Exam date and time: 10/26/2025 9:14 PM Age: 75 years old Clinical indication: Cognitive deficit; Altered mental status; Prior surgery; Surgery date: Post-operative (0-2 days); Surgery type: Shoulder; Additional info: Stroke alert TECHNIQUE: Imaging protocol: Computed tomographic angiography of the head with contrast. Exam focused on the arteries. 3D rendering (Not supervised by radiologist): MIP and/or 3D reconstructed images were created by the technologist. Radiation optimization: All CT scans at this facility use at least one of these dose optimization techniques: automated exposure control; mA and/or kV adjustment per patient size (includes targeted exams where dose is matched to clinical indication); or iterative reconstruction. Contrast material: OMNI 350; Contrast volume: 100 ml; Contrast route: INTRAVENOUS (IV); COMPARISON: CT head wo con* [id number] 10/26/2025 9:06 PM RADIATION DOSE METRICS: Total DLP (mGy-cm): 564.05 FINDINGS: ANTERIOR CIRCULATION: Right internal carotid artery: Calcified atheroma of the right cavernous ICA but no significant stenosis. Right middle cerebral artery: No occlusion or significant stenosis. No aneurysm. Right anterior cerebral artery: No occlusion or significant stenosis. No aneurysm. Left internal carotid artery: Calcified atheroma of the left cavernous ICA but no significant stenosis. Left middle cerebral artery: No occlusion or significant stenosis. No aneurysm. Left anterior cerebral artery: No occlusion or significant stenosis. No aneurysm. POSTERIOR CIRCULATION: Right vertebral artery: No occlusion or significant stenosis. No aneurysm. Left vertebral artery: No occlusion or significant stenosis. No aneurysm. Basilar artery: No occlusion or significant stenosis. No aneurysm. Right posterior cerebral artery: Mild stenosis of the right [employer]. 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 Brain: No definite mass, mass effect, or midline shift. Cerebral ventricles: No ventriculomegaly. Bones/joints: Unremarkable. No acute fracture. Soft tissues: Unremarkable. PROCEDURE INFORMATION: Exam: CTA Neck With Contrast Exam date and time: 10/26/2025 9:14 PM Age: 75 years old Clinical indication: Cognitive deficit; Altered mental status; Prior surgery; Surgery date: Post-operative (0-2 days); Surgery type: Shoulder; Additional info: Stroke alert TECHNIQUE: Imaging protocol: Computed tomographic angiography of the neck with contrast. Exam focused on the cervical segments of the vasculature. 3D rendering (Not supervised by radiologist): MIP and/or 3D reconstructed images were created by the technologist. Radiation optimization: All CT scans at this facility use at least one of these dose optimization techniques: automated exposure control; mA and/or kV adjustment per patient size (includes targeted exams where dose is matched to clinical indication); or iterative reconstruction. Contrast material: OMNI 350; Contrast volume: 100 ml; Contrast route: INTRAVENOUS (IV); COMPARISON: CT cervical spin wo con* [id number] 10/25/2025 5:20 PM RADIATION DOSE METRICS: Total DLP (mGy-cm): 564.05 FINDINGS: Right common carotid artery: No stenosis. No dissection or occlusion. Right internal carotid artery: No stenosis of the extracranial segment. No dissection or occlusion. Right external carotid artery: No occlusion or stenosis of the origin. Left common carotid artery: No stenosis. No dissection or occlusion. Left internal carotid artery: Calcified atheroma of the left proximal ICA but no significant stenosis. Left external carotid artery: No occlusion or stenosis of the origin. Right vertebral artery: No stenosis. No dissection or occlusion. Left vertebral artery: No stenosis. No dissection or occlusion. Soft tissues: Normal. No significant soft tissue swelling. Bones/joints: The cervical spine demonstrates mild degenerative changes at multiple levels. There are ossific densities in the ligamentum nuchae, consistent with remote trauma. CT/CT angio headneck* [id number] IMPRESSION: 1. No large vessel occlusion. 2. No large territorial infarct or intracranial bleed. IMPRESSION: No significant arterial stenosis. REFERENCES: NASCET CRITERIA. The degree of stenosis in the cervical segment of the internal carotid artery is based on NASCET criteria. Normal is no stenosis. Mild is less than 50% stenosis. Moderate is 50-69% stenosis. Severe is 70% to 99% stenosis. Total occlusion is no detectable patent lumen.
[2025-10-26] MEDS: iohexol 350 mg/mL 500 mL Btl (per mL) IV (21:16)
--- NOTE | 2025-10-26 21:29 | PC.NURSE ---
2125 - pt returned to PACU via Gray RN and Ana M Doyle RN - awaiting bed assignment as well as CT results - no change in pts condition - placed on 2L NC - family friend previously updated per Dr Dupree prior to pt going to CT
--- NOTE | 2025-10-26 21:30 | PC.NURSE ---
Personal belongings taken to PACU by pt care nurse.
--- NOTE | 2025-10-26 21:35 | PC.NURSE ---
2135 - Per LOUIE Castellano sup - transfer pt to [facility] 112-2
--- NOTE | 2025-10-26 21:50 | ANE.PACU2 ---
Inpatient post-anesthesia follow up: Airway intact: Yes Vital signs: Temperature 98.5 F Pulse Rate 104 Respiratory Rate 18 Blood Pressure 136/73 Pulse Oximetry 92 Oxygen Delivery Me thod Room Air Oxygen Flow Rate 2 Fraction of Inspir ed Oxygen 2 Hydration adequate: Yes Nausea and vomiting: No Pain level: 1 Mental status: Altered Additional Comments: Patient experienced delayed emergence. Narcan administered under direction of Amanda Galloway CRNA. Upon receiving report from nursing that patient hadn't improved, I called stroke code. Stroke assessment inaccurate d/t patient condition. Suspect residual drug effect from intraoperative ketamine, precedex, and dilaudid adminstration, however patient was in beach-chair position with head above heart for his surgery, thus increasing risk for stroke.
--- NOTE | 2025-10-26 21:53 | PC.NURSE ---
2148 - pt accepted into room 112-2 with LOUIE Díaz at side - BP 127/76 - pulse 72 - 02 98% 2L NC - no change in pts condition
--- NOTE | 2025-10-26 21:55 | PC.NURSE ---
Pt was transferred to [facility] (112-2) directly from PACU. Report given to assigned RN at CSU.
[2025-10-27] VITALS (9 sets, daily range): BP systolic 119–145; BP diastolic 65–81; PULSE 63–106; RESP 14–18; TEMP 36.4–36.9; O2SAT 90–96
[2025-10-27] MEDS: HYDROcodone-acetaminophen 5-325 mg Tablet 1 TAB PO ×3 (10:03→19:44)
--- NOTE | 2025-10-27 11:01 | P.PN_ITS ---
Subjective 2 Subjective: Intermittent pain requiring pain medication. Fell through the staircase at his house when it broke underneath him while taking out trash and got stuck there for 4 hours until some neighbors had found him. 10/27 patient awake and alert, apparently was hallucinating overnight had a stroke alert called, CT head reviewed and CTA head and neck reviewed and negative. He is completely awake and alert does not have any focal neurological deficits. Does not require any further workup from stroke standpoint at this time. He is very upset that he has not had any food for the last 3 days and wants to eat. Discussed with orthopedics and okay to start diet today since no plan to go to the OR today Vitals/I&O/Wt Last Vital Signs Temp 97.5 F L 10/27/25 07:16 Pulse 71 10/27/25 07:16 Resp 16 10/27/25 07:16 BP 143/77 10/27/25 07:16 Pulse Ox 93 10/27/25 07:16 O2 Del Method Room Air 10/27/25 07:16 O2 Flow Rate 2 10/26/25 20:55 FiO2 2 10/26/25 21:42 10/26/25 10/27/25 10/27/25 22:59 06:59 14:59 Intake Total 100 / 1560 1100 / 2660 Output Total 425 / 725 300 / 1025 Balance -325 / 835 800 / 1635 Weight last 48 hrs Weight 102.149 kg Weight 120.202 kg Physical Exam 2 Const: COMMON NORMALS: patient oriented x3 and alert GENERAL APPEARANCE: c ooperative ORIENTATION/CONSCIOUSNESS: Yes awake HENMT: COMMON NORMALS: oropharynx normal Neck/C-Spine: COMMON NORMALS: no JVD Resp: COMMON NORMALS: normal respiratory effort and clear to auscultation bilaterally AUSCULTATION: clear to auscultation bilaterally Cardio: COMMON NORMALS: no JVD, regular rhythm, S1 normal heart sound present, S2 normal heart sound present and No murmurs present (Cardio) RHYTHM: regular rhythm HEART SOUNDS: S1 normal heart sound present and S2 normal heart sound present GI: COMMON NORMALS: Normal to inspection, nondistended, normoactive bowel sounds present, Soft to palpation and non-tender PALPATION: Yes Soft to palpation Extremity: COMMON NORMALS: no joint enlargement and no pedal edema OTHER: Right arm in a sling Bruising, deformity of the left thumb. Very small abrasion at the proximal end of the distal phalanx on palmar surface. Neuro: COMMON NORMALS: patient oriented x3 and moves all extremities S ENSORIUM/ORIENTATION: Yes alert Skin: COMMON NORMALS: no rashes or lesions noted GENERAL SKIN EXAM: no rashes or lesions noted Urinary Catheter Management: Vivas: Cath Placed During This Visit: no Reason for Continuing Indwelling Catheter: Other Data 10/26/25 03:23 10/26/25 03:23 A&P Assessment and plan 1. Right humeral fracture: 2. Closed bilateral fracture of pubic rami, initial encounter: 3. Closed nondisplaced fracture of right acetabulum, unspecified portion of acetabulum, initial encounter: 4. Closed fracture of distal end of right radius, unspecified fracture morphology, initial encounter: 5. Closed fracture of distal end of right ulna, unspecified fracture morphology, initial encounter: 6. Fall (on) (from) other stairs and steps, initial encounter: Plan: Accidental fall Bilateral pubic rami fractures Right acetabular fracture Right ulnar fracture Right radial fracture Mild rhabdomyolysis Hypokalemia ?ELEUTERIO, unclear baseline Leukocytosis - Orthopedic surgery following --patient is s/p OR -no further plans for or today. Patient is extremely upset about not getting any food. Will start diet. Discussed with orthopedics. -Continue pain control with as needed pain meds. -Vital stable-White count is 20 10-12.58 from recent . which is likely reactive. Will recheck labs for tomorrow -Appears to have underlying CKD. -Hypokalemia resolved. -CK somewhat elevated, continue IV fluids. Trend -Diet as mentioned above Possible UTI with leukocyte esterase 1+ Rocephin IV, monitor urine cultures- PENDING DVT PPX Lovenox Full code PDMP PDMP Reviewed: Not Reviewed Attestations 2 Medical Necessity Statement*: Needs to stay in the hospital for another night for monitoring/care. Monitoring labs. Also may need to go to the OR again. Also needs PT OT Coding Level of Care Code Acute Code for Chg Fwd Diagnoses Right humeral fracture S42.301A Encounter type: initial encounter Humerus Location: proximal Fracture type: closed Fracture alignment: displaced Closed bilateral fracture of pubic rami, initial encounter S32.591A; S32.592A Encounter type: initial encounter Fracture type: closed Closed nondisplaced fracture of right acetabulum, unspecified portion of acetabulum, initial encounter S32.401A Encounter type: initial encounter Sublocation of acetabulum: unspecified portion of acetabulum Fracture type: closed Fracture alignment: nondisplaced Closed fracture of distal end of right radius, unspecified fracture morphology, initial encounter S52.501A Encounter type: initial encounter Radius location: distal Fracture type: closed Fracture morphology: unspecified fracture morphology Closed fracture of distal end of right ulna, unspecified fracture morphology, initial encounter S52.601A Encounter type: initial encounter Fracture type: closed Fracture morphology: unspecified fracture morphology Fall (on) (from) other stairs and steps, initial encounter W10.8XXA
[2025-10-27 11:22] LABS: Hematocrit 25.9 % (37-53); Hemoglobin 8.40 g/dL (11.27-16.99); Mean Corpuscular HGB Conc 32.4 g/dL (30-55); Mean Corpuscular Hemoglobin 31.7 pg (27-33); Mean Corpuscular Volume 97.7 fl (82-101); Nucleated Red Blood Cells % 0 %; Platelet Count 154 10^3/cmm (157-399); Red Blood Count 2.65 10^6/uL (3.85-5.65); White Blood Count 12.16 10^3/uL (3.29-11.43)
[2025-10-27 11:44] LABS: Anion Gap 16.2 (5-19); Blood Urea Nitrogen 27 mg/dL (8-23); Calcium 8.0 mg/dL (8.5-10.5); Carbon Dioxide 23 mmol/L (22-29); Chloride 107 mmol/L (98-107); Glucose 125 mg/dL (65-115); Osmolality Calculated 301 mOsm/kg (285-295); Potassium 4.2 mmol/L (3.5-5.1); Sodium 142 mmol/L (136-145)
--- NOTE | 2025-10-27 12:22 | XR_ITS ---
WS: [id number] Exam: XR pelvis min 3V [id number] Date/Time of Exam: 10/27/2025 12:22 PM Reason For Exam: PRE-THERAPY EVAL DLP: Comparison 10/25/[address] performed 10/25/2025. Nondisplaced bilateral inferior pubic rami fractures and also nondisplaced LEFT superior ramus fracture. No other obvious pelvic fracture. Advanced DJD of both hips more severe on the RIGHT than the LEFT. XR/XR pelvis min 3V [id number] IMPRESSION: 1. Bilateral inferior pubic rami fractures and LEFT superior pubic rami fractur es are nondisplaced. 2. Advanced DJD of both hips most marked on the RIGHT. 3. Previously noted right anterior column fracture difficult to identify on thi s study.
[2025-10-27] MEDS: cefTRIAXone 1,000 mg SDV 1000 MG IVP (12:54)
--- NOTE | 2025-10-27 13:16 | P.PN_ITS ---
Subjective 2 Subjective: Postop day 1 right proximal humeral nail. Patient is alert and oriented. Workup negative for any stroke and patient is returned back to baseline today. Patient in PACU is having concerns for possible stroke. His workup was negative. At this point in time pain control with medications. Sling on in place. Planning on surgery for distal radius on . Vitals/I&O/Wt Last Vital Signs Temp 98.5 F 10/27/25 11:26 Pulse 104 H 10/27/25 11:26 Resp 18 10/27/25 11:26 BP 136/73 10/27/25 11:26 Pulse Ox 92 10/27/25 11:26 O2 Del Method Room Air 10/27/25 11:26 O2 Flow Rate 2 10/26/25 20:55 FiO2 2 10/26/25 21:42 10/26/25 10/27/25 10/27/25 22:59 06:59 14:59 Intake Total 100 / 1560 1100 / 2660 720 / 720 Output Total 425 / 725 300 / 1025 Balance -325 / 835 800 / 1635 720 / 720 Weight last 48 hrs Weight 225 lb 3.2 oz Weight 265 lb Physical Exam 2 Narrative: Examination: Patient's right shoulder dressings are on in place are clean dry and intact patient has ecchymosis and swelling of the right proximal humerus the compartments are soft and compressible right upper arm volar splint in place to the right hand. Patient is able to wiggle the fingers as well as make near full fist no pain on passive range of motion of the fingers sensation intact light touch distally fingertips are warm well-perfused brisk cap refill less than 2 seconds compartments are soft compressible in the forearm. Examination of the bilateral lower extremities tenderness palpation over the pubic rami's negative logroll examinations bilaterally distal pulses are palpable patient is able to wiggle toes plantarflex and dorsiflex ankles. Patient has brace on in place to the left thumb and able to wiggle left hand fingers. Urinary Catheter Management: Vivas: Cath Placed During This Visit: no Reason for Continuing Indwelling Catheter: Other Data 10/31/25 04:02 10/31/25 04:02 Other Labs: AM labs 10/27/2025 listed below: Hemoglobin 8.4 WBC 12.16 Creatinine 1.6 Micro: Microbiology 10/26/25 09:18 Urine Culture - Preliminary Urine,Clean Catch Xray Ortho: Radiologist's impression: Patient: Camacho Jacobo Unit #: [id number] : 1950 Age/Sex: 75 / M ADM Date: 10/25/25 Loc: [facility] Room/Bed: [facility] Attending: Maryse Flores MD Ordering Provider/Ordering MD: Roland Dupree Date of Service: 10/26/25 Procedure(s): C-arm Fluoroscopy [id number] Accession Number(s): [id number] Report Number: [id number] WS: [id number] Exam: C-arm Fluoroscopy [id number] Date/Time of Exam: 10/26/2025 3:17 PM Reason For Exam: Right proximal humerus ORIF DLP: AP and lateral intraoperative images of the proximal RIGHT humerus are submitted. The images depict internal fixation involving a fracture of the neck and head of the humerus. Fracture alignment appears to be satisfactory for healing. A&P Assessment and plan 1. Right humeral fracture: 2. Closed bilateral fracture of pubic rami, initial encounter: 3. Closed nondisplaced fracture of right acetabulum, unspecified portion of acetabulum, initial encounter: 4. Closed fracture of distal end of right radius, unspecified fracture morphology, initial encounter: 5. Closed fracture of distal end of right ulna, unspecified fracture morphology, initial encounter: 6. Fracture of thumb, left, closed: Plan: Postop day 1 right proximal humeral nail Orthopedics is consulting provider Internal medicine/hospitalist is primary DVT prophylaxis per primary?Lovenox AM labs reviewed?hgb 8.4 Will obtain pre and post ambulatory x-rays of the pelvis after working with therapy today Pain control Weight-bear as tolerated to the bilateral lower extremities Nonweightbearing to the right upper extremity Patient may weight-bear as tolerated to the left upper extremity maintaining thumb spica brace PT/OT Sling right upper extremity, volar splint right wrist, thumb spica left hand Case management on board for discharge planning PDMP PDMP Reviewed: Not Reviewed Attestations 2 Medical Necessity Statement*: Per primary Coding Level of Care Code Acute Code for Chg Fwd Diagnoses Right humeral fracture S42.301A Closed bilateral fracture of pubic rami, initial encounter S32.591A; S32.592A Encounter type: initial encounter Fracture type: closed Closed nondisplaced fracture of right acetabulum, unspecified portion of acetabulum, initial encounter S32.401A Encounter type: initial encounter Fracture alignment: nondisplaced Fracture type: closed Sublocation of acetabulum: unspecified portion of acetabulum Closed fracture of distal end of right radius, unspecified fracture morphology, initial encounter S52.501A Encounter type: initial encounter Fracture morphology: unspecified fracture morphology Fracture type: closed Radius location: distal Closed fracture of distal end of right ulna, unspecified fracture morphology, initial encounter S52.601A Encounter type: initial encounter Fracture morphology: unspecified fracture morphology Fracture type: closed Fracture of thumb, left, closed S62.502A Time Spent (min) 20
--- NOTE | 2025-10-27 15:45 | XRR_ITS ---
PROCEDURE INFORMATION: Exam: XR Pelvis Exam date and time: 10/27/2025 4:49 PM Age: 75 years old Clinical indication: Post ambulation xray TECHNIQUE: Imaging protocol: Radiologic exam of the pelvis. Views: 1 or 2 view. COMPARISON: CR XR pelvis min 3V [id number] 10/27/2025 1:31 PM FINDINGS: Bones/joints: Unchanged alignment of nondisplaced bilateral inferior pubic rami and left superior pubic ramus fractures following ambulation. Previously described right acetabular fracture is not well visualized on the current exam. Bilateral hip osteoarthritis. Soft tissues: Unremarkable. XR/XR pelvis 1-2V* [id number] IMPRESSION: Unchanged alignment of bilateral pubic rami fractures following ambulation.
[2025-10-28] VITALS (19 sets, daily range): BP systolic 120–187; BP diastolic 58–93; PULSE 67–99; RESP 16–20; TEMP 36.6–37.6; O2SAT 90–97
[2025-10-28] MEDS: HYDROcodone-acetaminophen 5-325 mg Tablet 1 TAB PO ×2 (00:46→05:46)
[2025-10-28 06:15] LABS: Hematocrit 21.2 % (37-53); Hemoglobin 6.60 g/dL (11.27-16.99); Mean Corpuscular HGB Conc 31.1 g/dL (30-55); Mean Corpuscular Hemoglobin 31.6 pg (27-33); Mean Corpuscular Volume 101.4 fl (82-101); Nucleated Red Blood Cells % 0.3 %; Platelet Count 126 10^3/cmm (157-399); Red Blood Count 2.09 10^6/uL (3.85-5.65); White Blood Count 8.95 10^3/uL (3.29-11.43)
[2025-10-28 06:33] LABS: Anion Gap 12.7 (5-19); Blood Urea Nitrogen 17 mg/dL (8-23); Calcium 7.4 mg/dL (8.5-10.5); Carbon Dioxide 22 mmol/L (22-29); Chloride 111 mmol/L (98-107); Glucose 105 mg/dL (65-115); Osmolality Calculated 296 mOsm/kg (285-295); Potassium 3.7 mmol/L (3.5-5.1); Sodium 142 mmol/L (136-145)
[2025-10-28] MEDS: sodium chloride 0.9% (100 ml) 100 ML 50 ML ×2 (11:49→18:29)
--- NOTE | 2025-10-28 13:01 | P.PN_ITS ---
Subjective 2 Subjective: Patient seen and examined, discussed blood transfusion with him and he is okay with that. Denies any bleeding from anywhere. Vitals/I&O/Wt Last Vital Signs Temp 99.0 F 10/28/25 12:19 Pulse 76 10/28/25 12:19 Resp 18 10/28/25 12:19 BP 187/77 10/28/25 12:19 Pulse Ox 95 10/28/25 11:45 O2 Del Method Room Air 10/28/25 11:38 O2 Flow Rate 2 10/26/25 20:55 FiO2 2 10/26/25 21:42 10/27/25 10/28/25 10/28/25 22:59 06:59 14:59 Intake Total 1771.667 / 2491.667 1413.333 / 3905.000 240 / 240 Output Total 1250 / 1250 900 / 2150 Balance 521.667 / 1241.667 513.333 / 1755.000 240 / 240 Weight last 48 hrs Weight 107.501 kg Weight 102.149 kg Physical Exam 2 Const: COMMON NORMALS: patient oriented x3 and alert GENERAL APPEARANCE: c ooperative ORIENTATION/CONSCIOUSNESS: Yes awake HENMT: COMMON NORMALS: oropharynx normal Neck/C-Spine: COMMON NORMALS: no JVD Resp: COMMON NORMALS: normal respiratory effort and clear to auscultation bilaterally AUSCULTATION: clear to auscultation bilaterally Cardio: COMMON NORMALS: no JVD, regular rhythm, S1 normal heart sound present, S2 normal heart sound present and No murmurs present (Cardio) RHYTHM: regular rhythm HEART SOUNDS: S1 normal heart sound present and S2 normal heart sound present GI: COMMON NORMALS: Normal to inspection, nondistended, normoactive bowel sounds present, Soft to palpation and non-tender PALPATION: Yes Soft to palpation Extremity: COMMON NORMALS: no joint enlargement and no pedal edema OTHER: Right arm in a sling Bruising, deformity of the left thumb. Very small abrasion at the proximal end of the distal phalanx on palmar surface. Neuro: COMMON NORMALS: patient oriented x3 and moves all extremities S ENSORIUM/ORIENTATION: Yes alert Skin: COMMON NORMALS: no rashes or lesions noted GENERAL SKIN EXAM: no rashes or lesions noted Urinary Catheter Management: Vivas: Cath Placed During This Visit: no Reason for Continuing Indwelling Catheter: Other Data 10/28/25 05:44 10/28/25 05:44 Micro: Microbiology 10/26/25 09:18 Urine Culture - Final Urine,Clean Catch A&P Assessment and plan 1. Fracture of thumb, left, closed: 2. UTI (urinary tract infection): 3. ELEUTERIO (acute kidney injury): 4. Closed fracture of distal end of right ulna, unspecified fracture morphology, initial encounter: 5. Closed fracture of distal end of right radius, unspecified fracture morphology, initial encounter: 6. Closed nondisplaced fracture of right acetabulum, unspecified portion of acetabulum, initial encounter: Plan: 1. Right humeral fracture: 2. Closed bilateral fracture of pubic rami, initial encounter: 3. Closed nondisplaced fracture of right acetabulum, unspecified portion of acetabulum, initial encounter: 4. Closed fracture of distal end of right radius, unspecified fracture morphology, initial encounter: 5. Closed fracture of distal end of right ulna, unspecified fracture morphology, initial encounter: 6. Fall (on) (from) other stairs and steps, initial encounter: Plan: Accidental fall Bilateral pubic rami fractures Right acetabular fracture Right ulnar fracture Right radial fracture Mild rhabdomyolysis Hypokalemia ?ELEUTERIO, unclear baseline Leukocytosis - Orthopedic surgery following --patient is s/p OR 10/27 --plan to go to the OR again tomorrow. - Likely anemia of blood loss today, will transfuse with unit of PRBC. Also monitor platelet counts and supplement thrombocytopenia-which could also be secondary to blood loss - Leukocytosis has resolved. -Continue pain control with as needed pain meds. -Appears to have underlying CKD., With ELEUTERIO, ELEUTERIO improving -Hypokalemia resolved. -CK somewhat elevated, continue IV fluids. Trend -Diet as mentioned above Possible UTI with leukocyte esterase 1+ Rocephin IV, urine cultures not growing anything so far. Continue Rocephin IV for now. DVT PPX Lovenox Full code PDMP PDMP Reviewed: Not Reviewed Attestations 2 Medical Necessity Statement*: Getting blood transfusion. Monitor platelet count. Plan for or tomorrow. Coding Level of Care Code Acute Code for [facility] Diagnoses Fracture of thumb, left, closed S62.502A UTI (urinary tract infection) N39.0 ELEUTERIO (acute kidney injury) N17.9 Closed fracture of distal end of right ulna, unspecified fracture morphology, initial encounter S52.601A Closed fracture of distal end of right radius, unspecified fracture morphology, initial encounter S52.501A Closed nondisplaced fracture of right acetabulum, unspecified portion of acetabulum, initial encounter S32.401A
[2025-10-28] MEDS: cefTRIAXone 1,000 mg SDV 1000 MG IVP (16:20)
--- NOTE | 2025-10-28 16:25 | PC.SOCIAL ---
*IMM* Patient received a copy of the Important Message from [employer]. Copy in chart initialed and dated.
--- NOTE | 2025-10-28 17:15 | P.PN_ITS ---
Subjective 2 Subjective: Patient seen and examined this evening. Postop day 2 right proximal humerus nail, planning on right distal radius ORIF tomorrow. N.p.o. at midnight tonight, patient is on the post ambulatory films and demonstrates stable pubic rami fractures no evidence of displacement can continue to weight-bear as tolerated bilateral lower extremities Vitals/I&O/Wt Last Vital Signs Temp 98.1 F 10/28/25 15:48 Pulse 83 10/28/25 15:48 Resp 17 10/28/25 15:48 BP 160/58 10/28/25 15:48 Pulse Ox 96 10/28/25 15:48 O2 Del Method Nasal Cannula 10/28/25 15:48 O2 Flow Rate 2 10/26/25 20:55 FiO2 2 10/26/25 21:42 10/28/25 10/28/25 10/28/25 06:59 14:59 22:59 Intake Total 1413.333 / 3905.000 1290 / 1290 Output Total 900 / 2150 Balance 513.333 / 5484.476 0653 / 1290 Weight last 48 hrs Weight 237 lb Weight 225 lb 3.2 oz Physical Exam 2 Narrative: Examination: Patient's right shoulder dressings are on in place are clean dry and intact patient has improving ecchymosis and swelling of the right proximal humerus the compartments are soft and compressible right upper arm volar splint in place to the right hand. Patient is able to wiggle the fingers as well as make near full fist no pain on passive range of motion of the fingers sensation intact light touch distally fingertips are warm well-perfused brisk cap refill less than 2 seconds compartments are soft compressible in the forearm. Examination of the bilateral lower extremities tenderness palpation over the pubic rami's negative logroll examinations bilaterally distal pulses are palpable patient is able to wiggle toes plantarflex and dorsiflex ankles. Patient has brace on in place to the left thumb and able to wiggle left hand fingers. Urinary Catheter Management: Vivas: Cath Placed During This Visit: no Reason for Continuing Indwelling Catheter: Other Data 11/01/25 03:49 11/01/25 03:49 Other Labs: AM labs 10/28/2025 WBC 8.95, hemoglobin 6.6, sodium 142, BUN 17, creatinine 1, potassium 3.7 Micro: Microbiology 10/26/25 09:18 Urine Culture - Final Urine,Clean Catch A&P Assessment and plan 1. Right humeral fracture: 2. Closed bilateral fracture of pubic rami, initial encounter: 3. Closed nondisplaced fracture of right acetabulum, unspecified portion of acetabulum, initial encounter: 4. Closed fracture of distal end of right radius, unspecified fracture morphology, initial encounter: 5. Closed fracture of distal end of right ulna, unspecified fracture morphology, initial encounter: 6. Fracture of thumb, left, closed: Plan: Orthopedics is consulting provider Internal medicine/hospitalist is primary DVT prophylaxis per primary?Lovenox AM labs reviewed?hemoglobin 6.6?Will receive 1 unit PRBC today per primary X-ray of the pelvis post working with therapy pre and post ambulatory x-rays stable pelvic fracture no instability or displacement appreciated Pain control Weight-bear as tolerated to the bilateral lower extremities Nonweightbearing to the right upper extremity, maintain volar splint?plan for right distal radius ORIF tomorrow Patient may weight-bear as tolerated to the left upper extremity maintaining thumb spica brace PT/OT Sling right upper extremity, volar splint right wrist, thumb spica left hand Case management on board for discharge planning Orthopedics will continue to follow N.p.o. at midnight plan for right distal radius ORIF tomorrow PDMP PDMP Reviewed: Last Reviewed 11/01/25 21:39 EST by Brady Dupree DO Attestations 2 Medical Necessity Statement*: Ongoing care multiple fractures, per primary Coding Level of Care Code Acute Code for Chg Fwd Diagnoses Right humeral fracture S42.301A Closed bilateral fracture of pubic rami, initial encounter S32.591A; S32.592A Encounter type: initial encounter Fracture type: closed Closed nondisplaced fracture of right acetabulum, unspecified portion of acetabulum, initial encounter S32.401A Encounter type: initial encounter Fracture alignment: nondisplaced Fracture type: closed Sublocation of acetabulum: unspecified portion of acetabulum Closed fracture of distal end of right radius, unspecified fracture morphology, initial encounter S52.501A Encounter type: initial encounter Fracture morphology: unspecified fracture morphology Fracture type: closed Radius location: distal Closed fracture of distal end of right ulna, unspecified fracture morphology, initial encounter S52.601A Encounter type: initial encounter Fracture morphology: unspecified fracture morphology Fracture type: closed Fracture of thumb, left, closed S62.502A Time Spent (min) 20
[2025-10-29] VITALS (24 sets, daily range): BP systolic 131–180; BP diastolic 67–85; PULSE 65–90; RESP 16–18; TEMP 36.1–37.3; O2SAT 91–97
--- NOTE | 2025-10-29 | XR_ITS ---
WS: [id number] XR wrist RT min 3V* [id number] REASON FOR EXAM: SHIRAZ PICS FINDINGS: Plate and screw fixation of comminuted distal radial metaphyseal fracture. Surgical appliances are intact and in proper position and alignment. Fracture fragments are in good apposition and alignment. XR/XR wrist RT min 3V* [id number] IMPRESSION: Right wrist fracture with internal fixation without abnormality.
[2025-10-29 06:14] LABS: Hematocrit 24.1 % (37-53); Hemoglobin 7.50 g/dL (11.27-16.99); Mean Corpuscular HGB Conc 31.1 g/dL (30-55); Mean Corpuscular Hemoglobin 31.3 pg (27-33); Mean Corpuscular Volume 100.4 fl (82-101); Nucleated Red Blood Cells % 0.6 %; Platelet Count 164 10^3/cmm (157-399); Red Blood Count 2.40 10^6/uL (3.85-5.65); White Blood Count 8.34 10^3/uL (3.29-11.43)
[2025-10-29 06:32] LABS: Anion Gap 11.7 (5-19); Blood Urea Nitrogen 13 mg/dL (8-23); Calcium 8.0 mg/dL (8.5-10.5); Carbon Dioxide 24 mmol/L (22-29); Chloride 109 mmol/L (98-107); Glucose 114 mg/dL (65-115); Osmolality Calculated 293 mOsm/kg (285-295); Potassium 3.7 mmol/L (3.5-5.1); Sodium 141 mmol/L (136-145)
[2025-10-29] MEDS: HYDROcodone-acetaminophen 5-325 mg Tablet 1 TAB PO ×3 (09:53→22:38)
--- NOTE | 2025-10-29 13:00 | W.PM.OPSUD ---
Surgery/Procedure H&P Update DATE OF PROCEDURE: October 29, 2025 DATE H&P PERFORMED: 10/26/25 H&P UPDATE INFORMATION: I have reviewed H&P completed within last 30 days, I have examined patient prior to procedure and No changes to prior documentation CHANGES TO PREVIOUS DOCUMENTATION: Patient at this point in time is ready to proceed with surgical invention for his right distal radius at this point in time is healing well pertain to the right humerus fracture he is already on pre and post ambulatory x-rays with his pelvic fractures. At this point in time we checked with hospitalist patient is asymptomatic at 7.5 hemoglobin we will recheck his hemoglobin prior to if it is below 8 we will plan on transfusing intraoperatively as there is no further tuneup or medical optimization required and needed per the hospitalist team patient okay to proceed with surgical intervention today we will follow-up on his hemoglobin after it has been rechecked in the preoperative holding area prior to proceeding with any type of transfusion he is over 8 we will continue to observe. Once again discussed treatment options with patient and talked about surgical intervention for the right distal radius and patient's ready to proceed with surgical invention for right distal radius ORIF understands Anzemet the procedure the risk benefits complication alternative surgical nonsurgical treatment options. Understanding risk of surgery patient elects proceed with surgical invention. All questions answered at this time. PREOP DIAGNOSIS: Right distal radius fracture displaced and angulated PRIMARY INDICATION FOR PROCEDURE: Right distal radius fracture displaced and angulated PLANNED PROCEDURE: Operation Date: 10/26/25 17:30 Proposed Procedures p IM Proximal Humeral Nail Insertion(Right) - Brady Dupree DO Operation Date: 10/29/25 16:55 Proposed Procedures p ORIF Distal Radius(Right) - Brady Dupree DO
[2025-10-29] MEDS: acetaminophen 1,000 MG/100 ML PIGGYBACK 400 MG IV (13:31)
[2025-10-29 13:34] LABS: Hematocrit 26.6 % (37-53); Hemoglobin 8.80 g/dL (11.27-16.99); Mean Corpuscular HGB Conc 33.1 g/dL (30-55); Mean Corpuscular Hemoglobin 30.9 pg (27-33); Mean Corpuscular Volume 93.3 fl (82-101); Nucleated Red Blood Cells % 0.3 %; Platelet Count 208 10^3/cmm (157-399); Red Blood Count 2.85 10^6/uL (3.85-5.65); White Blood Count 9.34 10^3/uL (3.29-11.43)
[2025-10-29] MEDS: ceFAZolin 2,000 MG in sodium chloride 0.9% (plus) 50 ML 100 MG IV ×2 (14:00→21:50)
--- NOTE | 2025-10-29 14:14 | P.PN_ITS ---
Subjective 2 Subjective: Patient seen and examined, discussed blood transfusion with him and he is okay with that. Denies any bleeding from anywhere. Vitals/I&O/Wt Last Vital Signs Temp 99.1 F 10/29/25 13:29 Pulse 71 10/29/25 13:29 Resp 17 10/29/25 13:29 BP 150/80 10/29/25 13:29 Pulse Ox 95 10/29/25 13:29 O2 Del Method Room Air 10/29/25 13:29 O2 Flow Rate 2 10/28/25 20:00 FiO2 2 10/26/25 21:42 10/28/25 10/29/25 10/29/25 22:59 06:59 14:59 Intake Total 720 / 2010 980 / 2990 1271.667 / 1271.667 Output Total 1400 / 1400 600 / 2000 700 / 700 Balance -680 / 610 380 / 990 571.667 / 571.667 Weight last 48 hrs Weight 109.117 kg Weight 107.501 kg Physical Exam 2 Const: COMMON NORMALS: patient oriented x3 and alert GENERAL APPEARANCE: c ooperative ORIENTATION/CONSCIOUSNESS: Yes awake HENMT: COMMON NORMALS: oropharynx normal Neck/C-Spine: COMMON NORMALS: no JVD Resp: COMMON NORMALS: normal respiratory effort and clear to auscultation bilaterally AUSCULTATION: clear to auscultation bilaterally Cardio: COMMON NORMALS: no JVD, regular rhythm, S1 normal heart sound present, S2 normal heart sound present and No murmurs present (Cardio) RHYTHM: regular rhythm HEART SOUNDS: S1 normal heart sound present and S2 normal heart sound present GI: COMMON NORMALS: Normal to inspection, nondistended, normoactive bowel sounds present, Soft to palpation and non-tender PALPATION: Yes Soft to palpation Extremity: COMMON NORMALS: no joint enlargement and no pedal edema OTHER: Right arm in a sling Bruising, deformity of the left thumb. Very small abrasion at the proximal end of the distal phalanx on palmar surface. Neuro: COMMON NORMALS: patient oriented x3 and moves all extremities S ENSORIUM/ORIENTATION: Yes alert Skin: COMMON NORMALS: no rashes or lesions noted GENERAL SKIN EXAM: no rashes or lesions noted Urinary Catheter Management: Vivas: Cath Placed During This Visit: no Reason for Continuing Indwelling Catheter: Other Data 10/29/25 13:22 10/29/25 05:54 Micro: Microbiology 10/26/25 09:18 Urine Culture - Final Urine,Clean Catch A&P Assessment and plan 1. Fracture of thumb, left, closed: 2. UTI (urinary tract infection): 3. ELEUTERIO (acute kidney injury): 4. Closed fracture of distal end of right ulna, unspecified fracture morphology, initial encounter: 5. Closed fracture of distal end of right radius, unspecified fracture morphology, initial encounter: 6. Closed nondisplaced fracture of right acetabulum, unspecified portion of acetabulum, initial encounter: Plan: 1. Right humeral fracture: 2. Closed bilateral fracture of pubic rami, initial encounter: 3. Closed nondisplaced fracture of right acetabulum, unspecified portion of acetabulum, initial encounter: 4. Closed fracture of distal end of right radius, unspecified fracture morphology, initial encounter: 5. Closed fracture of distal end of right ulna, unspecified fracture morphology, initial encounter: 6. Fall (on) (from) other stairs and steps, initial encounter: Plan: Accidental fall Bilateral pubic rami fractures Right acetabular fracture Right ulnar fracture Right radial fracture Mild rhabdomyolysis Hypokalemia ?ELEUTERIO, unclear baseline Leukocytosis - Orthopedic surgery following --patient is s/p OR 10/27 --plan for OR again today - Likely anemia of blood loss today, transfused 1 unit of PRBC on 10/28.. Thrombocytopenia improving gradually. - Leukocytosis has resolved. -Continue pain control with as needed pain meds. -Appears to have underlying CKD., With ELEUTERIO, ELEUTERIO improving -Hypokalemia resolved. -CK somewhat elevated, continue IV fluids. Trend -Diet as mentioned above Possible UTI with leukocyte esterase 1+ Rocephin IV, urine cultures not growing anything so far. Continue Rocephin IV for now. DVT PPX Lovenox Full code PDMP PDMP Reviewed: Not Reviewed Attestations 2 Medical Necessity Statement*: Anemia thrombocytopenia Going to the OR today Coding Level of Care Code Acute Code for Chg Fwd Diagnoses Fracture of thumb, left, closed S62.502A UTI (urinary tract infection) N39.0 ELEUTERIO (acute kidney injury) N17.9 Closed fracture of distal end of right ulna, unspecified fracture morphology, initial encounter S52.601A Closed fracture of distal end of right radius, unspecified fracture morphology, initial encounter S52.501A Closed nondisplaced fracture of right acetabulum, unspecified portion of acetabulum, initial encounter S32.401A
[2025-10-29] MEDS: ROPivacaine 0.5% SDV 30 mL 50 MG XX (14:41)
--- NOTE | 2025-10-29 15:18 | W.PM.BPON ---
Date of Procedure: 10/29/25 Surgeon: Brady Dupree DO Drum Saw Operator(s): Roland Dupree PA-C Procedure(s) performed: Right distal radius open reduction internal fixation (4 part intra-articular) Findings of the procedure(s): Patient underwent right distal radius open reduction internal fixation as planned without issues or complications taken to recovery in stable condition with volar splint on in place Estimated blood loss: 10 mL Specimen(s) removed: None Post-operative diagnosis: Right distal radius fracture intra-articular four-part displaced and angulated
--- NOTE | 2025-10-29 15:24 | P.OP_ITS ---
Operative Report Date of procedure: October 29, 2025 Surgeon: Brady Dupree DO [employer] Worker: Roland Dupree PA-C: PA was necessary for assistance in this case with hand positioning to execute the procedure, assistance with fracture reduction and fixation ,retraction and protection of neurovascular structures as well as to assist with wound closure and dressing/splint application. Procedure: Preop Diagnosis ? Right?distal?radius fracture ? Procedure: Post-op diagnosis: Same, 4part intra-articular Procedure done: Right?distal?radius open reduction internal fixation, 4-part intra-articular Implants: ?Arthrex Right 3-hole standard volar locking plate Combination of locking and nonlocking screws 2.7 mm?distal Combination of locking and nonlocking screws 3.5 mm proximal Surgeon: Brady Dupree DO Anesthesia: General Estimated blood loss: 10 mL Tourniquet time: 44 minutes IV fluids: 1000mL Complications: None Findings: See operative report narrative Condition: stable Disposition: same day Brief History: Patient is a 75-year-old male who sustained a polytrauma while falling through his porch at his home earlier this week we fix his right proximal humerus on Sunday and stage the right distal radius fracture is displaced angulated and intra-articular. Given the significant comminution as well as dorsal angulation talked about his options in detail and given he is right-hand dominant would like to pursue surgical intervention. Patient's been medically optimized, re check of his hemoglobin was 8.8 prior to surgical intervention. At this point time I feel through shared decision? best option would be open reduction internal fixation pt is active and already has a considerable deformity?? as result through shared decision making patient would like to proceed with ORIF Right?distal?radius fracture.? Detail the risk benefits complication alternatives to treatment option.? Understanding risk for surgery patient elects to proceed with surgical intervention.? All questions been answered at this time. Procedure: Patient seen and evaluated in the preoperative holding area.? Consent reviewed and signed with patient.? Correct extremities were marked and consent was reviewed and signed.? Patient was seen and evaluated by anesthesia department.? Underwent regional anesthesia. Once cleared for surgery pt was taken back to the operative suite.? Patient was then transported into the operative suite and kept on the OR gurney, all bony prominences well-padded patient was appropriate secured to bed in supine position.? An armboard was applied to the Right upper extremity.? The Right upper extremity had a nonsterile tourniquet applied this was applied just proximal to the elbow and not involving patient's previous surgical site of the proximal humerus. Patient subsequently was then prepped and draped in standard orthopedic fashion she underwent anesthesia per the anesthesia department.? A final timeout was performed.? Patient received appropriate preoperative antibiotics. Esmarch was used exsanguinate the Right upper extremity and tourniquet was ins ufflated to 250 mmHg. A standard modified FCR volar approach was performed to the Right?distal?radius.? Sharp scalpel incision through skin and subcutaneous tissue.? I then switched to Littler dissection scissors identify the FCR tendon releases out of the sheath both proximally and?distally mobilized the tendon ulnarly and then subsequently incised the floor of the FCR tendon sheath with care to just incise the floor.? I then bluntly sweep the FPL tendon muscle belly ulnarly and placed blunt self-retaining retractor.? At this point time I direct visualization of the pronator quadratus which was incised in standard L fashion off the?radial and?distal?border in the?distal?radius and fracture site was scraped clean of interposed muscle belly.? I then identified the 4 part intra-articular?distal?radius fracture.? This was subsequently opened above and freed of interposing muscle belly as well as periosteum and fracture hematoma.? I did have to utilize my [place] which was placed through the fracture pattern and disengage the fracture and performed manual manipulation and anatomic reduction of the?distal?radius fracture.? ?Once satisfied with reduction and had appropriate anatomic reduction of the volar cortex.? This was confirmed with mini C arm in multiple orthogonal imaging.? At this point time? I selected a Arthrex anatomic?distal?radius plate utilizing a standard 3-hole plate which would have appropriate spread?distally.? This was then placed up to the?distal?radius while maintaining my reduction, pins were placed?distally and proximally to confirm appropriate placement of the plate along the?distal?radius.? Minor adjustments were made and once I was satisfied I then subsequently drilled a bicortical 3.5 screw proximally in the oblong hole to allow for appropriate sliding of the?distal?radius plate appropriately to perfect position on the?distal?radius.? This had excellent fixation and purchase and brought the plate to bone.? While maintaining my reduction I then confirmed in multiple orthogonal imaging that my plate was in appropriate position.? Once satisfied with my position I then subsequently placed the peek targeting guide on the?distal?locking screws with Arthrex.? The locking guide was then subsequently loaded and I subsequently drilled and placed a fully threaded cortical screw to compress the plate to bone for the?distal?fracture fragment.? This was performed with plan to then remove this and placed a shorter locking screw had bicortical fixation with excellent purchase and appropriate reduction of my volar tilt and bringing plate to bone of the?distal?fragment and plate.? Once I was satisfied with my plate position as well as reduction of the?distal?radius which was confirmed on AP oblique and lateral imaging I then subsequently drilled measured and placed 4 locking screws around this cortical screw.? I did make small adjustments to the ulnar-sided screws to get appropriate fixation of the ulnar/lunate facet fragment. Patient to return to the floor postoperatively. Then I subsequently removed the cortical screw and placed a shorter locking screw that did not penetrate the dorsal cortex.?? This completed my?distal?fixation.? I did utilize mini C arm to confirm appropriate placement of the screws these were all within the?distal?radius and no joint involvement within the?radiocarpal joint or the DRUJ.? These had appropriate s ubchondral support and maintenance of reduction and fixation of the?distal?radius fracture.? ?I then turned my attention proximally and then I screwed in the locking guides for my final to screws proximally these were then subsequently drilled measured and appropriate length locking screws were then placed proximally with excellent fixation and locking technology into the plate.? This completed my construct.? The peek guide was subsequently removed and final imaging of the Right?distal?radius open reduction internal fixation was taken of AP lateral as well and is orthogonal imaging.? I then took a inclination view which showed my?radial styloid screw was out of the penetration of the joint.? All my?distal?screws were appropriate length did not penetrate dorsal cortex and did not penetrate the joint.? Ulnar styloid fragment was in good position and very small with stable DRUJ this was all left alone. This completed my fixation.? Smooth wrist range of motion was then noted with no evidence of clicking. Wrist was then taken through pronation supination and stressed the DRUJ which was found to be stable.? The wound was then thoroughly irrigated.? Tourniquet was then subsequently def lated.? Hemostasis satisfactory with bipolar electrocautery.? I then subsequently placed interrupted 3-0 Vicryl sutures for subcutaneous tissue and then subsequently placed a nylon the skin for closure.? Incision was then dressed with Xeroform 4 x 4's Kerlix cast padding and a volar Ortho-Glass splint was then applied with Reed wrap and placed in a sling.? Disposition: Patient taken to PACU in stable condition recovering well receive appropriate discharge instructions as well as pain medication postoperatively.? Maintain splint until follow-up.? Nonweightbearing to operative upper extremity, patient to return to the floor postoperatively. We will follow-up with Dr. Dupree in the office in 2 weeks.? If any questions or concerns feel free to contact the office.
--- NOTE | 2025-10-29 16:17 | SUR.PHASEI ---
Pt ok to transfer to [facility] per Dr. Miller, after speaking to the hopsitalist following the pt.
--- NOTE | 2025-10-29 16:42 | P.ANESPOST_ITS ---
Inpatient post-anesthesia follow up: Airway intact: Yes Vital signs: Temperature 97.6 F Pulse Rate 76 Respiratory Rate 18 Blood Pressure 146/80 Pulse Oximetry 94 Oxygen Delivery Me thod Room Air Oxygen Flow Rate 2 Fraction of Inspir ed Oxygen 2 Hydration adequate: Yes Nausea and vomiting: No Pain level: 1 Mental status: Altered (not oriented to person or place; stable for floor HD sta ble, discussed with Sandra.)
[2025-10-29] MEDS: calcium carb-vit d 600mg/400unit 1 Tablet 1 EACH PO (17:28)
[2025-10-29] MEDS: chlorhexidine gluconate 0.12% Btl 473 mL 30 ML MUCOUS MEM (17:29)
[2025-10-30 01:00] VITALS: BP 140/72; PULSE 62; RESP 14; TEMP 36.9; O2SAT 90
[2025-10-30] MEDS: HYDROcodone-acetaminophen 5-325 mg Tablet 1 TAB PO ×4 (03:11→21:51)
[2025-10-30 05:00] VITALS: BP 142/79; PULSE 56; RESP 16; TEMP 36.4; O2SAT 98
[2025-10-30] MEDS: multivitamin therapeutic Tablet 1 TAB PO (05:25)
[2025-10-30] MEDS: calcium carb-vit d 600mg/400unit 1 Tablet 1 EACH PO ×2 (05:25→16:28)
[2025-10-30] MEDS: ceFAZolin 2,000 MG in sodium chloride 0.9% (plus) 50 ML 100 MG IV ×2 (05:27→13:58)
[2025-10-30 06:09] LABS: Hematocrit 23.6 % (37-53); Hemoglobin 7.70 g/dL (11.27-16.99); Mean Corpuscular HGB Conc 32.6 g/dL (30-55); Mean Corpuscular Hemoglobin 31.0 pg (27-33); Mean Corpuscular Volume 95.2 fl (82-101); Nucleated Red Blood Cells % 0.2 %; Platelet Count 205 10^3/cmm (157-399); Red Blood Count 2.48 10^6/uL (3.85-5.65); White Blood Count 8.50 10^3/uL (3.29-11.43)
[2025-10-30 06:25] LABS: Anion Gap 14.9 (5-19); Blood Urea Nitrogen 17 mg/dL (8-23); Calcium 8.2 mg/dL (8.5-10.5); Carbon Dioxide 25 mmol/L (22-29); Chloride 107 mmol/L (98-107); Glucose 120 mg/dL (65-115); Osmolality Calculated 299 mOsm/kg (285-295); Potassium 3.9 mmol/L (3.5-5.1); Sodium 143 mmol/L (136-145)
[2025-10-30 07:39] VITALS: BP 161/88; PULSE 63; RESP 17; TEMP 37.2; O2SAT 94
[2025-10-30 11:53] VITALS: BP 147/77; PULSE 64; RESP 17; TEMP 37.3; O2SAT 96
[2025-10-30] MEDS: chlorhexidine gluconate 0.12% Btl 473 mL 30 ML MUCOUS MEM ×3 (12:23→23:47)
--- NOTE | 2025-10-30 12:30 | PC.SOCIAL ---
IMM Updated Updated pt on IMM. No questions voiced. Provided pt a copy. Initialed, dated, & timed copy in chart.
--- NOTE | 2025-10-30 13:26 | P.PN_ITS ---
Subjective 2 Subjective: Patient seen and examined, discussed blood transfusion with him and he is okay with that. Denies any bleeding from anywhere. 10/30 patient seen and examined, states t here is a little bit of pain but overall it is controlled. Vitals/I&O/Wt Last Vital Signs Temp 99.2 F 10/30/25 11:53 Pulse 64 10/30/25 11:53 Resp 17 10/30/25 11:53 BP 147/77 10/30/25 11:53 Pulse Ox 96 10/30/25 11:53 O2 Del Method Room Air 10/30/25 05:00 O2 Flow Rate 1 10/29/25 18:20 FiO2 2 10/26/25 21:42 10/29/25 10/30/25 10/30/25 22:59 06:59 14:59 Intake Total 2780 / 4101.667 868.333 / 4970.000 2091.667 / 2091.667 Output Total 1210 / 1910 1300 / 3210 610 / 610 Balance 1570 / 2191.667 -431.667 / 5549.320 3516.667 / 1481.667 Weight last 48 hrs Weight 108.862 kg Weight 109.117 kg Physical Exam 2 Const: COMMON NORMALS: patient oriented x3 and alert GENERAL APPEARANCE: c ooperative ORIENTATION/CONSCIOUSNESS: Yes awake HENMT: COMMON NORMALS: oropharynx normal Neck/C-Spine: COMMON NORMALS: no JVD Resp: COMMON NORMALS: normal respiratory effort and clear to auscultation bilaterally AUSCULTATION: clear to auscultation bilaterally Cardio: COMMON NORMALS: no JVD, regular rhythm, S1 normal heart sound present, S2 normal heart sound present and No murmurs present (Cardio) RHYTHM: regular rhythm HEART SOUNDS: S1 normal heart sound present and S2 normal heart sound present GI: COMMON NORMALS: Normal to inspection, nondistended, normoactive bowel sounds present, Soft to palpation and non-tender PALPATION: Yes Soft to palpation Extremity: COMMON NORMALS: no joint enlargement and no pedal edema OTHER: Right arm in a sling Bruising, deformity of the left thumb. Very small abrasion at the proximal end of the distal phalanx on palmar surface. Neuro: COMMON NORMALS: patient oriented x3 and moves all extremities S ENSORIUM/ORIENTATION: Yes alert Skin: COMMON NORMALS: no rashes or lesions noted GENERAL SKIN EXAM: no rashes or lesions noted Urinary Catheter Management: Vivas: Cath Placed During This Visit: no Reason for Continuing Indwelling Catheter: Other Data 10/30/25 05:39 10/30/25 05:39 A&P Assessment and plan 1. Fracture of thumb, left, closed: 2. UTI (urinary tract infection): 3. ELEUTERIO (acute kidney injury): 4. Closed fracture of distal end of right ulna, unspecified fracture morphology, initial encounter: 5. Closed fracture of distal end of right radius, unspecified fracture morphology, initial encounter: 6. Closed nondisplaced fracture of right acetabulum, unspecified portion of acetabulum, initial encounter: Plan: 1. Right humeral fracture: 2. Closed bilateral fracture of pubic rami, initial encounter: 3. Closed nondisplaced fracture of right acetabulum, unspecified portion of acetabulum, initial encounter: 4. Closed fracture of distal end of right radius, unspecified fracture morphology, initial encounter: 5. Closed fracture of distal end of right ulna, unspecified fracture morphology, initial encounter: 6. Fall (on) (from) other stairs and steps, initial encounter: Plan: Accidental fall Bilateral pubic rami fractures Right acetabular fracture Right ulnar fracture Right radial fracture Mild rhabdomyolysis Hypokalemia ?ELEUTERIO, unclear baseline Leukocytosis - Orthopedic surgery following --patient is s/p OR 10/27 --s/p OR again on 10/29. S/p open reduction internal fixation of right distal radius fracture.. Volar splint in place. -Had developed anemia of blood loss during hospitalization and got transfused 1 unit of PRBC on 10/28.. Thrombocytopenia improving gradually. Hemoglobin improved to 7.7 and stable. - Leukocytosis has resolved. -Continue pain control with as needed pain meds. -Appears to have underlying CKD., With ELEUTERIO, ELEUTERIO has resolved -Hypokalemia resolved. -CK somewhat elevated, continue IV fluids. Trend -Diet as mentioned above Possible UTI with leukocyte esterase 1+ Rocephin IV, urine cultures not growing anything so far. Continue Rocephin IV for now. Will complete a 5 to 7-day course DVT PPX Lovenox Full code PDMP PDMP Reviewed: Not Reviewed Attestations 2 Medical Necessity Statement*: Needs physical therapy occupational therapy/pain control. Once pain controlled on p.o. meds have recommendations from PT OT can likely discharge. Also has not had a bowel movement for 5 days. Ordering MiraLAX daily. Coding Level of Care Code Acute Code for Chg Fwd Diagnoses Fracture of thumb, left, closed S62.502A UTI (urinary tract infection) N39.0 ELEUTERIO (acute kidney injury) N17.9 Closed fracture of distal end of right ulna, unspecified fracture morphology, initial encounter S52.601A Closed fracture of distal end of right radius, unspecified fracture morphology, initial encounter S52.501A Closed nondisplaced fracture of right acetabulum, unspecified portion of acetabulum, initial encounter S32.401A
--- NOTE | 2025-10-30 14:35 | P.PN_ITS ---
Subjective 2 Subjective: Patient seen and examined today. Recovering well pain controlled medications. Splint on in place, patient's postoperative day 1 from right distal radius ORIF. Educated on finger range of motion exercises to keep from fingers getting stiff. Planning on discharge to long-term facility at discharge Vitals/I&O/Wt Last Vital Signs Temp 98.1 F 10/30/25 21:00 Pulse 71 10/30/25 21:00 Resp 16 10/30/25 21:00 BP 169/69 10/30/25 21:00 Pulse Ox 96 10/30/25 21:00 O2 Del Method Room Air 10/30/25 05:00 O2 Flow Rate 1 10/29/25 18:20 FiO2 2 10/26/25 21:42 10/30/25 10/30/25 10/31/25 14:59 22:59 06:59 Intake Total 2091.667 / 2091.667 1050 / 3141.667 Output Total 610 / 610 2060 / 2670 Balance 1481.667 / 1481.667 -1010 / 471.667 Weight last 48 hrs Weight 240 lb Weight 240 lb 9 oz Physical Exam 2 Narrative: Examination: Patient's right shoulder dressings are on in place are clean dry and intact patient has resolving ecchymosis and swelling of the right proximal humerus the compartments are soft and compressible right upper arm volar splint in place to the right hand. Patient is able to wiggle the fingers as well as make near full fist no pain on passive range of motion of the fingers sensation intact light touch distally fingertips are warm well-perfused brisk cap refill less than 2 seconds compartments are soft compressible in the forearm. Examination of the bilateral lower extremities tenderness palpation over the pubic rami's negative logroll examinations bilaterally distal pulses are palpable patient is able to wiggle toes plantarflex and dorsiflex ankles. Patient has brace on in place to the left thumb and able to wiggle left hand fingers. Urinary Catheter Management: Vivas: Cath Placed During This Visit: no Reason for Continuing Indwelling Catheter: Other Data 11/02/25 03:33 11/02/25 03:33 Other Labs: AM labs 10/30/2025 listed below Hemoglobin 7.7 WBC 8.5, sodium 143, potassium 3.9, creatinine 0.9 A&P Assessment and plan 1. Right humeral fracture: 2. Closed bilateral fracture of pubic rami, initial encounter: 3. Closed nondisplaced fracture of right acetabulum, unspecified portion of acetabulum, initial encounter: 4. Closed fracture of distal end of right radius, unspecified fracture morphology, initial encounter: 5. Closed fracture of distal end of right ulna, unspecified fracture morphology, initial encounter: 6. Fracture of thumb, left, closed: Plan: Postoperative day 4 right proximal humerus ORIF with humeral nail Postoperative day 1 right distal radius ORIF Orthopedics is consulting provider Internal medicine/hospitalist is primary DVT prophylaxis per primary?Lovenox AM labs reviewed?hemoglobin 7.7 Pain control Weight-bear as tolerated to the bilateral lower extremities Nonweightbearing to the right upper extremity Patient may weight-bear as tolerated to the left upper extremity maintaining thumb spica brace PT/OT Sling right upper extremity, volar splint right wrist, thumb spica left hand Case management on board for discharge planning Orthopedics will continue to follow PDMP PDMP Reviewed: Last Reviewed 11/01/25 21:39 EST by Brady Dupree DO [place] 2 Medical Necessity Statement*: Per primary Coding Level of Care Code Acute Code for Chg Fwd Diagnoses Right humeral fracture S42.301A Closed bilateral fracture of pubic rami, initial encounter S32.591A; S32.592A Encounter type: initial encounter Fracture type: closed Closed nondisplaced fracture of right acetabulum, unspecified portion of acetabulum, initial encounter S32.401A Encounter type: initial encounter Fracture alignment: nondisplaced Fracture type: closed Sublocation of acetabulum: unspecified portion of acetabulum Closed fracture of distal end of right radius, unspecified fracture morphology, initial encounter S52.501A Encounter type: initial encounter Fracture morphology: unspecified fracture morphology Fracture type: closed Radius location: distal Closed fracture of distal end of right ulna, unspecified fracture morphology, initial encounter S52.601A Encounter type: initial encounter Fracture morphology: unspecified fracture morphology Fracture type: closed Fracture of thumb, left, closed S62.502A Time Spent (min) 15
[2025-10-30 15:33] VITALS: BP 166/64; PULSE 78; RESP 18; TEMP 37.3; O2SAT 95
[2025-10-30] MEDS: cefTRIAXone 1,000 mg SDV 1000 MG IVP (16:29)
[2025-10-30 21:00] VITALS: BP 169/69; PULSE 71; RESP 16; TEMP 36.7; O2SAT 96
[2025-10-31] VITALS: BP 162/70; PULSE 61; RESP 17; TEMP 36.7; O2SAT 92
[2025-10-31 04:00] VITALS: BP 163/71; PULSE 61; RESP 12; TEMP 36.6; O2SAT 95
[2025-10-31 04:21] LABS: Hematocrit 23.7 % (37-53); Hemoglobin 7.60 g/dL (11.27-16.99); Mean Corpuscular HGB Conc 32.1 g/dL (30-55); Mean Corpuscular Hemoglobin 30.4 pg (27-33); Mean Corpuscular Volume 94.8 fl (82-101); Nucleated Red Blood Cells % 0.3 %; Platelet Count 233 10^3/cmm (157-399); Red Blood Count 2.50 10^6/uL (3.85-5.65); White Blood Count 8.73 10^3/uL (3.29-11.43)
[2025-10-31] MEDS: HYDROcodone-acetaminophen 5-325 mg Tablet 1 TAB PO (04:41)
[2025-10-31] MEDS: polyethylene glycol 3350 Pkt 17 gm PO (04:41)
[2025-10-31] MEDS: multivitamin therapeutic Tablet 1 TAB PO (04:41)
[2025-10-31] MEDS: chlorhexidine gluconate 0.12% Btl 473 mL 30 ML MUCOUS MEM ×4 (04:42→23:23)
[2025-10-31] MEDS: calcium carb-vit d 600mg/400unit 1 Tablet 1 EACH PO ×2 (04:42→16:33)
[2025-10-31 04:46] LABS: Anion Gap 12.0 (5-19); Blood Urea Nitrogen 15 mg/dL (8-23); Calcium 8.4 mg/dL (8.5-10.5); Carbon Dioxide 26 mmol/L (22-29); Chloride 106 mmol/L (98-107); Glucose 118 mg/dL (65-115); Osmolality Calculated 294 mOsm/kg (285-295); Potassium 3.0 mmol/L (3.5-5.1); Sodium 141 mmol/L (136-145)
[2025-10-31 08:00] VITALS: BP 173/75; PULSE 69; RESP 16; TEMP 36.4; O2SAT 95
--- NOTE | 2025-10-31 09:22 | P.PN_ITS ---
Subjective 2 Subjective: Patient seen and examined today pains improving and controlled with medications. Will get a new 3 view pelvis x-ray today. Planning on going to rehab facility on discharge. Patient's been working with right hand finger range of motion's had significant improvement on that today. Vitals/I&O/Wt Last Vital Signs Temp 97.6 F 10/31/25 08:00 Pulse 69 10/31/25 08:00 Resp 16 10/31/25 08:00 BP 173/75 10/31/25 08:00 Pulse Ox 95 10/31/25 08:00 O2 Del Method Room Air 10/31/25 08:00 O2 Flow Rate 1 10/29/25 18:20 FiO2 2 10/26/25 21:42 10/30/25 10/31/25 10/31/25 22:59 06:59 14:59 Intake Total 1050 / 3141.667 240 / 3381.667 120 / 120 Output Total 2060 / 2670 550 / 3220 Balance -1010 / 471.667 -310 / 161.667 120 / 120 Weight last 48 hrs Weight 240 lb Weight 240 lb Physical Exam 2 Narrative: Examination: Patient's right shoulder dressings are on in place are clean dry and intact patient has resolving ecchymosis and swelling of the right proximal humerus the compartments are soft and compressible right upper arm volar splint in place to the right hand. Patient is able to wiggle the fingers as well as make near full fist no pain on passive range of motion of the fingers sensation intact light touch distally fingertips are warm well-perfused brisk cap refill less than 2 seconds compartments are soft compressible in the forearm. Examination of the bilateral lower extremities tenderness palpation over the pubic rami's negative logroll examinations bilaterally distal pulses are palpable patient is able to wiggle toes plantarflex and dorsiflex ankles. Patient has brace on in place to the left thumb and able to wiggle left hand fingers. Urinary Catheter Management: Vivas: Cath Placed During This Visit: no Reason for Continuing Indwelling Catheter: Other Data 10/31/25 04:02 10/31/25 04:02 A&P Assessment and plan 1. Right humeral fracture: 2. Closed bilateral fracture of pubic rami, initial encounter: 3. Closed nondisplaced fracture of right acetabulum, unspecified portion of acetabulum, initial encounter: 4. Closed fracture of distal end of right radius, unspecified fracture morphology, initial encounter: 5. Closed fracture of distal end of right ulna, unspecified fracture morphology, initial encounter: 6. Fracture of thumb, left, closed: Plan: Orthopedics is consulting provider Internal medicine/hospitalist is primary DVT prophylaxis per primary?Lovenox AM labs reviewed?hemoglobin 7.6 currently asymptomatic will defer to primary team for any transfusions if necessary today Will obtain three-view pelvis x-rays after has been doing ambulation as previous 1 only has a single view Pain control Weight-bear as tolerated to the bilateral lower extremities Nonweightbearing to the right upper extremity Patient may weight-bear as tolerated to the left upper extremity maintaining thumb spica brace PT/OT Sling right upper extremity, volar splint right wrist, thumb spica left hand Case management on board for discharge planning PDMP PDMP Reviewed: Not Reviewed Attestations 2 Medical Necessity Statement*: Ongoing care multiple fractures requiring fixation for right proximal humerus right distal radius Coding Level of Care Code Acute Code for Chg Fwd Diagnoses Right humeral fracture S42.301A Closed bilateral fracture of pubic rami, initial encounter S32.591A; S32.592A Encounter type: initial encounter Fracture type: closed Closed nondisplaced fracture of right acetabulum, unspecified portion of acetabulum, initial encounter S32.401A Encounter type: initial encounter Sublocation of acetabulum: unspecified portion of acetabulum Fracture type: closed Fracture alignment: nondisplaced Closed fracture of distal end of right radius, unspecified fracture morphology, initial encounter S52.501A Encounter type: initial encounter Radius location: distal Fracture type: closed Fracture morphology: unspecified fracture morphology Closed fracture of distal end of right ulna, unspecified fracture morphology, initial encounter S52.601A Encounter type: initial encounter Fracture type: closed Fracture morphology: unspecified fracture morphology Fracture of thumb, left, closed S62.502A Time Spent (min) 20
--- NOTE | 2025-10-31 09:24 | XRR_ITS ---
PROCEDURE INFORMATION: Exam: XR Pelvis Exam date and time: 10/31/2025 2:52 PM Age: 75 years old Clinical indication: Pelvic pain; Additional info: Multiple pelvic fx's; Post ambulatory images (ap, inlet, outlet per Dr. Dupree) TECHNIQUE: Imaging protocol: Radiologic exam of the pelvis. Views: 1 or 2 view. COMPARISON: CR XR pelvis 1-2V* [id number] 10/27/2025 4:49 PM FINDINGS: Bones/joints: Fractures of both the superior and inferior pubic rami bilaterally are identified. They do not appear displaced. Nondisplaced fracture of the right acetabulum is also noted. Large osteophytes of the inferior rim of the right acetabulum and femoral head is noted. Soft tissues: Soft tissues are within normal limits. XR/XR pelvis min 3V [id number] IMPRESSION: Multiple pelvic fractures without significant change identified.
[2025-10-31 11:39] VITALS: BP 173/83; PULSE 72; RESP 16; TEMP 37; O2SAT 98
--- NOTE | 2025-10-31 14:34 | P.PN_ITS ---
Subjective 2 Subjective: Patient seen while in bed. Patient complains that he was unable to sleep last night. He denies any pain at rest but some with activity. Patient is only on baclofen for pain. He is awaiting SNF placement Family present: No Amb status: Weightbearing and bilateral lower extremities no weightbearing with right arm right arm is in sling Diet: Regular Lines/Drains: Peripheral line Medications: Reviewed: Yes Vitals/I&O/Wt Last Vital Signs Temp 98.6 F 10/31/25 11:39 Pulse 72 10/31/25 11:39 Resp 16 10/31/25 11:39 BP 173/83 10/31/25 11:39 Pulse Ox 98 10/31/25 11:39 O2 Del Method Room Air 10/31/25 11:39 O2 Flow Rate 1 10/29/25 18:20 FiO2 2 10/26/25 21:42 10/30/25 10/31/25 10/31/25 22:59 06:59 14:59 Intake Total 1050 / 3141.667 240 / 3381.667 1008.333 / 1008.333 Output Total 2060 / 2670 550 / 3220 Balance -1010 / 471.667 -310 / 821.468 7689.333 / 1008.333 Weight last 48 hrs Weight 108.862 kg Weight 108.862 kg Physical Exam 2 Narrative: Alert and oriented person place time and situation no acute distress Hearts regular normal S1-S2 without murmurs clicks gallops rubs Lungs clear to auscultation without wheezes rales or rhonchi Abdomen soft nontender nondistended positive bowel sounds Extremities right shoulder chest region with marked ecchymosis now turning to a yellow-colored bruise continues to be mildly edematous No edema in the lower extremities Urinary Catheter Management: Vivas: Cath Placed During This Visit: no Reason for Continuing Indwelling Catheter: Other Data 10/31/25 04:02 10/31/25 04:02 A&P Assessment and plan 1. Fracture of thumb, left, closed: 2. UTI (urinary tract infection): 3. ELEUTERIO (acute kidney injury): 4. Closed fracture of distal end of right ulna, unspecified fracture morphology, initial encounter: 5. Closed fracture of distal end of right radius, unspecified fracture morphology, initial encounter: 6. Closed nondisplaced fracture of right acetabulum, unspecified portion of acetabulum, initial encounter: Plan: Accidental fall resulting in 1. Right humeral fracture: 2. Closed bilateral fracture of pubic rami, initial encounter: 3. Closed nondisplaced fracture of right acetabulum, unspecified portion of acetabulum, initial encounter: 4. Closed fracture of distal end of right radius, unspecified fracture morphology, initial encounter: 5. Closed fracture of distal end of right ulna, unspecified fracture morphology, initial encounter: Medical assessment Mild rhabdomyolysis Hypokalemia Present on admission [place] I. Leukocytosis. Resolved Appreciate orthopedic surgery assistance. Patient is status post RR 10/27 and again on . - Orthopedic surgery following --patient is s/p OR 10/27 --s/p OR again on 10/29. S/p open reduction internal fixation of right distal radius fracture.. Volar splint in place. -Had developed anemia of blood loss during hospitalization and got transfused 1 unit of PRBC on 10/28.. Thrombocytopenia resolved Hemoglobin stabilized on 10/30/2012 6 with 7.7 and 7.6 respectively patient asymptomatic continue to hold transfusion at this time. - Leukocytosis has resolved. -Continue pain control with as needed pain meds. - ELEUTERIO resolved most likely mildly dehydrated. - Possible UTI with leukocyte esterase 1+. Cultures were negative. However previous doctor wish to continue with 5 to 7-day course with an abnormal urinalysis. Patient has been changed to Cipro for 3 more days Constipation. On MiraLAX DVT PPX Lovenox Full code PDMP PDMP Reviewed: Not Reviewed Attestations 2 Medical Necessity Statement*: Ongoing care multiple fractures requiring fixation for right proximal humerus right distal radius. Patient requires long-term facility. Acceptance is pending. Coding Level of Care Code Acute Code for [facility] Fwd Diagnoses Fracture of thumb, left, closed S62.502A UTI (urinary tract infection) N39.0 ELEUTERIO (acute kidney injury) N17.9 Closed fracture of distal end of right ulna, unspecified fracture morphology, initial encounter S52.601A Closed fracture of distal end of right radius, unspecified fracture morphology, initial encounter S52.501A Closed nondisplaced fracture of right acetabulum, unspecified portion of acetabulum, initial encounter S32.401A
[2025-10-31 16:00] VITALS: BP 170/78; PULSE 92; RESP 14; TEMP 36.8; O2SAT 98
[2025-10-31 20:00] VITALS: BP 160/78; PULSE 82; RESP 18; TEMP 36.9; O2SAT 95
[2025-11-01] VITALS: BP 161/71; PULSE 73; RESP 17; TEMP 37.6; O2SAT 96
[2025-11-01 04:00] VITALS: BP 148/78; PULSE 68; RESP 17; TEMP 36.9; O2SAT 96
[2025-11-01] MEDS: calcium carb-vit d 600mg/400unit 1 Tablet 1 EACH PO ×2 (04:01→17:29)
[2025-11-01] MEDS: chlorhexidine gluconate 0.12% Btl 473 mL 30 ML MUCOUS MEM ×3 (04:02→17:30)
[2025-11-01] MEDS: multivitamin therapeutic Tablet 1 TAB PO (04:02)
[2025-11-01 04:08] LABS: Hematocrit 25.8 % (37-53); Hemoglobin 8.50 g/dL (11.27-16.99); Mean Corpuscular HGB Conc 32.9 g/dL (30-55); Mean Corpuscular Hemoglobin 30.9 pg (27-33); Mean Corpuscular Volume 93.8 fl (82-101); Nucleated Red Blood Cells % 0.2 %; Platelet Count 294 10^3/cmm (157-399); Red Blood Count 2.75 10^6/uL (3.85-5.65); White Blood Count 9.65 10^3/uL (3.29-11.43)
[2025-11-01 04:35] LABS: Anion Gap 13.9 (5-19); Blood Urea Nitrogen 13 mg/dL (8-23); Calcium 8.6 mg/dL (8.5-10.5); Carbon Dioxide 27 mmol/L (22-29); Chloride 103 mmol/L (98-107); Glucose 113 mg/dL (65-115); Osmolality Calculated 293 mOsm/kg (285-295); Sodium 141 mmol/L (136-145)
[2025-11-01 04:55] LABS: Potassium 2.9 mmol/L (3.5-5.1)
[2025-11-01 07:31] VITALS: BP 146/82; PULSE 55; RESP 17; O2SAT 97
--- NOTE | 2025-11-01 11:07 | P.PN_ITS ---
Subjective 2 Subjective: Patient seen while in bed. Sleeping was much better last night. He is still like to sleep better and request an increased dose of Ativan. Today the patient reports that he cannot walk because of the pain. But yesterday he reported that he really did not have any pain. Yesterday I ordered Motrin and Tylenol to be given. I spoke with the nurse in person and asked her to give the patient both doses of Motrin and Tylenol and then ambulate the patient to a chair. He is awaiting SNF placement Family present: No Amb status: Weightbearing and bilateral lower extremities no weightbearing with right arm right arm is in sling Diet: Regular Lines/Drains: Peripheral line Medications: Reviewed: Yes Vitals/I&O/Wt Last Vital Signs Temp 98.4 F 11/01/25 04:00 Pulse 55 L 11/01/25 07:31 Resp 17 11/01/25 07:31 BP 146/82 11/01/25 07:31 Pulse Ox 97 11/01/25 07:31 O2 Del Method Room Air 11/01/25 07:31 O2 Flow Rate 1 10/29/25 18:20 FiO2 2 10/26/25 21:42 10/31/25 11/01/25 11/01/25 22:59 06:59 14:59 Intake Total 120 / 1128.333 120 / 120 Output Total 2150 / 2150 1300 / 3450 Balance -2030 / -1021.667 -1300 / -2321.667 120 / 120 Weight last 48 hrs Weight 108.862 kg Weight 108.862 kg Physical Exam 2 Narrative: Alert and oriented person place time and situation no acute distress Hearts regular normal S1-S2 without murmurs clicks gallops rubs Lungs clear to auscultation without wheezes rales or rhonchi Abdomen soft nontender nondistended positive bowel sounds Extremities right shoulder chest region with marked ecchymosis now turning to a yellow-colored bruise continues to be mildly edematous No edema in the lower extremities Urinary Catheter Management: Vivas: Cath Placed During This Visit: no Reason for Continuing Indwelling Catheter: Other Data 11/01/25 03:49 11/01/25 03:49 Other Labs: Hemoglobin noted to be up by 1 g today to 8.5. Already received KCl 40 mill equivalents x 2 doses this morning by 9 AM A&P Assessment and plan 1. Fracture of thumb, left, closed: 2. UTI (urinary tract infection): 3. ELEUTERIO (acute kidney injury): 4. Closed fracture of distal end of right ulna, unspecified fracture morphology, initial encounter: 5. Closed fracture of distal end of right radius, unspecified fracture morphology, initial encounter: 6. Closed nondisplaced fracture of right acetabulum, unspecified portion of acetabulum, initial encounter: 7. Hypokalemia: Plan: 1. Mild rhabdomyolysis -CPK max of 869 on 11/06/2025. Last measured on 10/31/2025 at 365. 2. Hypokalemia -patient's potassium was 2.9 today. Patient received 80 mill equivalents total this morning by the overnight physician. Will check a magnesium level today. And will follow. 3. ELEUTERIO: Present on admission-Now resolved 4. Leukocytosis. Resolved 5. Postop anemia of blood loss. Transfused 1 unit on 10/28/2025. Hemoglobin now stable and increasing 6. Thrombocytopenia: Resolved 7. ELEUTERIO resolved 8. Urine with leukocyte esterase 1+ cultures were negative. However previous doctor wish to continue a total of 5 to 7-day course due to the abnormal urinalysis. Yesterday on 10/31/2025 patient was changed to Cipro for 3 further day 9. Activity/pain control. As above discussed with nurse for out of bed to chair and ambulation in room. He will receive Motrin and Tylenol for pain at this time. Nursing to contact me if patient's pain is uncontrolled. Appreciate orthopedic surgery assistance. Status-post ORIF to right distal radial fracture on 10/29/2025-volar splint in place. Status post ORIF of right humerus fracture with nail implants-sling in place s Lovenox Full code PDMP PDMP Reviewed: Not Reviewed Attestations 2 Medical Necessity Statement*: Ongoing care multiple fractures requiring fixation for right proximal humerus right distal radius. Patient requires custodial facility. Acceptance is pending. Coding Level of Care Code Acute Code for Chg Fwd Diagnoses Fracture of thumb, left, closed S62.502A UTI (urinary tract infection) N39.0 ELEUTERIO (acute kidney injury) N17.9 Closed fracture of distal end of right ulna, unspecified fracture morphology, initial encounter S52.601A Closed fracture of distal end of right radius, unspecified fracture morphology, initial encounter S52.501A Closed nondisplaced fracture of right acetabulum, unspecified portion of acetabulum, initial encounter S32.401A Hypokalemia E87.6
[2025-11-01 11:31] LABS: Magnesium 2.0 mg/dL (1.7-2.3)
[2025-11-01 11:34] VITALS: BP 146/82; PULSE 69; RESP 20; TEMP 37.1; O2SAT 97
[2025-11-01 16:00] VITALS: BP 163/68; PULSE 81; RESP 17; TEMP 37.4; O2SAT 97
[2025-11-01 19:57] VITALS: BP 150/67; PULSE 76; RESP 17; TEMP 36.6; O2SAT 97
--- NOTE | 2025-11-01 20:35 | P.PN_ITS ---
Subjective 2 Subjective: Patient seen and examined this evening. He was progressed appropriately through therapy pain is controlled medications ready for discharging to rehab facility likely tomorrow Vitals/I&O/Wt Last Vital Signs Temp 97.9 F 11/01/25 19:57 Pulse 76 11/01/25 19:57 Resp 17 11/01/25 19:57 BP 150/67 11/01/25 19:57 Pulse Ox 97 11/01/25 19:57 O2 Del Method Room Air 11/01/25 19:57 O2 Flow Rate 1 10/29/25 18:20 FiO2 2 10/26/25 21:42 11/01/25 11/01/25 11/01/25 06:59 14:59 22:59 Intake Total 360 / 360 240 / 600 Output Total 1300 / 3450 750 / 750 Balance -1300 / -2321.667 360 / 360 -510 / -150 Weight last 48 hrs Weight 240 lb Weight 240 lb Physical Exam 2 Narrative: Examination: Patient's right shoulder dressings are on in place are clean dry and intact patient has resolving ecchymosis and swelling of the right proximal humerus the compartments are soft and compressible right upper arm volar splint in place to the right hand. Patient is able to wiggle the fingers as well as make near full fist no pain on passive range of motion of the fingers sensation intact light touch distally fingertips are warm well-perfused brisk cap refill less than 2 seconds compartments are soft compressible in the forearm. Examination of the bilateral lower extremities tenderness palpation over the pubic rami's negative logroll examinations bilaterally distal pulses are palpable patient is able to wiggle toes plantarflex and dorsiflex ankles. Patient has brace on in place to the left thumb and able to wiggle left hand fingers. Urinary Catheter Management: Vivas: Cath Placed During This Visit: no Reason for Continuing Indwelling Catheter: Other Data 11/01/25 03:49 11/01/25 03:49 Xray Ortho: Radiologist's impression: Patient: Camacho Jacobo Unit #: [id number] : 1950 Age/Sex: 75 / M ADM Date: 10/25/25 Loc: [facility] Room/Bed: [facility] Attending: Kehinde Dejessu DO Ordering Provider/Ordering MD: Brady Dupree Date of Service: 10/31/25 Procedure(s): XR pelvis min 3V 56489 Accession Number(s): [id number] Report Number: [id number] PROCEDURE INFORMATION: Exam: XR Pelvis Exam date and time: 10/31/2025 2:52 PM Age: 75 years old Clinical indication: Pelvic pain; Additional info: Multiple pelvic fx's; Post ambulatory images (ap, inlet, outlet per Dr. Dupree) TECHNIQUE: Imaging protocol: Radiologic exam of the pelvis. Views: 1 or 2 view. COMPARISON: CR XR pelvis 1-2V* [id number] 10/27/2025 4:49 PM FINDINGS: Bones/joints: Fractures of both the superior and inferior pubic rami bilaterally are identified. They do not appear displaced. Nondisplaced fracture of the right acetabulum is also noted. Large osteophytes of the inferior rim of the right acetabulum and femoral head is noted. Soft tissues: Soft tissues are within normal limits. XR/XR pelvis min 3V 06790 IMPRESSION: Multiple pelvic fractures without significant change identified. A&P Assessment and plan 1. Right humeral fracture: 2. Closed bilateral fracture of pubic rami, initial encounter: 3. Closed nondisplaced fracture of right acetabulum, unspecified portion of acetabulum, initial encounter: 4. Closed fracture of distal end of right radius, unspecified fracture morphology, initial encounter: 5. Closed fracture of distal end of right ulna, unspecified fracture morphology, initial encounter: 6. Fracture of thumb, left, closed: Plan: Orthopedics is consulting provider Internal medicine/hospitalist is primary DVT prophylaxis per primary?Lovenox AM labs reviewed?hemoglobin 8.5 X-ray of the pelvis stable pubic rami and right superior pubic root fracture, no change since patient's progress with therapy, continue nonoperative treatment Pain control Weight-bear as tolerated to the bilateral lower extremities Nonweightbearing to the right upper extremity Patient may weight-bear as tolerated to the left upper extremity maintaining thumb spica brace PT/OT Sling right upper extremity, volar splint right wrist, thumb spica left hand Case management on board for discharge planning Patient stable for discharge orthopedic standpoint. Orthopedic surgery team will sign off patient at this time follow peripherally. If there is any questions pertaining to patient's care feel free to contact orthopedics on-call patient to follow-up with orthopedics in 2 weeks continue with volar splint and sling to the right upper extremity patient instructed on finger range of motion as well as elbow range of motion. Continue with ice as needed for pain and swelling. Received appropriate pain medication DVT prophylaxis per primary. Plan to follow-up in orthopedic office in 2 weeks. Weightbearing as tolerated to bilateral lower extremities keep pain below threshold. Continue thumb spica to the left hand for left thumb fracture. PDMP PDMP Reviewed: Not Reviewed Attestations 2 Medical Necessity Statement*: Ongoing care multiple fractures, per primary Coding Level of Care Code Acute Code for Chg Fwd Diagnoses Right humeral fracture S42.301A Closed bilateral fracture of pubic rami, initial encounter S32.591A; S32.592A Encounter type: initial encounter Fracture type: closed Closed nondisplaced fracture of right acetabulum, unspecified portion of acetabulum, initial encounter S32.401A Encounter type: initial encounter Fracture alignment: nondisplaced Fracture type: closed Sublocation of acetabulum: unspecified portion of acetabulum Closed fracture of distal end of right radius, unspecified fracture morphology, initial encounter S52.501A Encounter type: initial encounter Fracture morphology: unspecified fracture morphology Fracture type: closed Radius location: distal Closed fracture of distal end of right ulna, unspecified fracture morphology, initial encounter S52.601A Encounter type: initial encounter Fracture morphology: unspecified fracture morphology Fracture type: closed Fracture of thumb, left, closed S62.502A Time Spent (min) 15
[2025-11-02] VITALS: BP 151/92; PULSE 56; RESP 18; TEMP 37; O2SAT 96
[2025-11-02 04:00] VITALS: BP 142/73; PULSE 60; RESP 18; TEMP 36.7; O2SAT 96
[2025-11-02 04:00] LABS: Hematocrit 25.7 % (37-53); Hemoglobin 8.30 g/dL (11.27-16.99); Mean Corpuscular HGB Conc 32.3 g/dL (30-55); Mean Corpuscular Hemoglobin 31.0 pg (27-33); Mean Corpuscular Volume 95.9 fl (82-101); Platelet Count 349 10^3/cmm (157-399); Red Blood Count 2.68 10^6/uL (3.85-5.65); White Blood Count 8.34 10^3/uL (3.29-11.43)
[2025-11-02 04:15] LABS: Anion Gap 12.3 (5-19); Blood Urea Nitrogen 18 mg/dL (8-23); Calcium 8.6 mg/dL (8.5-10.5); Carbon Dioxide 27 mmol/L (22-29); Chloride 103 mmol/L (98-107); Glucose 141 mg/dL (65-115); Osmolality Calculated 292 mOsm/kg (285-295); Potassium 3.3 mmol/L (3.5-5.1); Sodium 139 mmol/L (136-145)
[2025-11-02 05:00] LABS: Absolute Segmented Neutrophil 5.7 10/cmm (1.6-7.1); Atypical Lymphs 0.0 % (0-5); Slide Review Slide Review Perform; Total Cells Counted 100 (0-100)
[2025-11-02 05:01] VITALS: BMI 29.0
[2025-11-02 05:01] LABS: Anisocytosis Trace; Giant Platelets Trace
[2025-11-02] MEDS: polyethylene glycol 3350 Pkt 17 gm PO (05:08)
[2025-11-02] MEDS: chlorhexidine gluconate 0.12% Btl 473 mL 30 ML MUCOUS MEM ×2 (05:08→11:33)
[2025-11-02] MEDS: multivitamin therapeutic Tablet 1 TAB PO (05:08)
[2025-11-02] MEDS: calcium carb-vit d 600mg/400unit 1 Tablet 1 EACH PO (05:08)
[2025-11-02 07:33] VITALS: BP 171/81; PULSE 63; RESP 18; TEMP 36.3; O2SAT 97
--- NOTE | 2025-11-02 09:54 | PC.SOCIAL ---
IMM Updated Updated pt on IMM. No questions voiced. Provided pt a copy. Initialed, dated, & timed copy in chart.
--- NOTE | 2025-11-02 10:48 | P.DS_ITS ---
Discharge Providers Date of Admission: 10/25/25 19:41 Date of Discharge: November 02, 2025 Attending Provider at Admission: Amilcar Barbosa MD Attending Provider at Discharge: Huber Pompa MD Consults: Orthopedics Diagnoses at Discharge Discharge Diagnosis 1. Right humeral fracture: 2. Closed bilateral fracture of pubic rami, initial encounter: 3. Closed nondisplaced fracture of right acetabulum, unspecified portion of acetabulum, initial encounter: 4. Closed fracture of distal end of right radius, unspecified fracture morphology, initial encounter: 5. Closed fracture of distal end of right ulna, unspecified fracture morphology, initial encounter: 6. Fracture of thumb, left, closed: Reason for Visit Reason for Visit: right shoulder pain s/p fall Brief History: Per HPI Cristiano Jacobo is a 75 year old male who presented to the ED after sustaining a fall at home. He states he was walking up his three steps when the floor gave out and he fell to the ground. He was unable to stand immediately after the fall and was on the ground for 3-4 hours calling for help. Eventually, a neighbor was able to assist and an ambulance was called who delivered him to our facility for evaluation. He denies any prodromal symptoms prior to the fall. He is able to move all fingers and toes but does mention some numbness to the right fingertips Hospital Course Hospital Course Patient was admitted to the hospital for evaluation and management of accidental fall leading to bilateral pubic rami fracture, right acetabular fracture, right ulnar and radial fracture with mild epidermolysis. On admission he did have ELEUTERIO with hyperkalemia. He was started on IV hydration. Orthopedics was consulted. He underwent ORIF for right proximal humerus fracture of on 10/26 and ORIF for right distal fracture on 10/29. She was discharged from the discussed detail with the patient and he requested to be transition to SNF. He has been discharged to SNF in hemodynamically stable condition. Physical Exam Narrative: Alert and oriented person place time and situation no acute distress Hearts regular normal S1-S2 without murmurs clicks gallops rubs Lungs clear to auscultation without wheezes rales or rhonchi Abdomen soft nontender nondistended positive bowel sounds Extremities right shoulder chest region with marked ecchymosis now turning to a yellow-colored bruise continues to be mildly edematous No edema in the lower extremities Urinary Catheter Management: Vivas: Cath Placed During This Visit: no Reason for Continuing Indwelling Catheter: Other Discharge Data Studies Completed and Pending Completed Studies During Hospitalization Category Date Time Status CT angio headneck* 56170/65113 Stat Cat Scan 10/26/25 21:[address] cervical spin wo con* 85782 Stat Cat Scan 10/25/25 16:[address] chest abdomen pelvis [CT chest abdpel w/*[id number]/17495 Cat Scan 10/25/25 16:28 Completed ] Stat CT head wo con* 76828 Stat Cat Scan 10/25/25 16:[address] head wo con* 49928 Stat Cat Scan 10/26/25 20:51 Completed CXRP [XR chest 1V portable 39132] Stat Exams 10/25/25 16:14 Completed XR forearm RT 2V 56353 Stat Exams 10/25/25 18:12 Completed XR hand LT min 3V* 35146 Routine Exams 10/26/25 12:25 Completed XR hip RT 2-3V wo/w pel* 17596 Stat Exams 10/25/25 16:14 Completed XR pelvis 1-2V* 19939 Stat Exams 10/27/25 15:45 Completed XR pelvis min 3V 97708 Routine Exams 10/27/25 12:22 Completed XR pelvis min 3V 62097 Routine Exams 10/31/25 09:24 Completed XR shoulder RT min 2V* 20494 Routine Exams 10/26/25 12:19 Completed XR shoulder RT min 2V* 18368 Stat Exams 10/25/25 16:14 Completed XR wrist RT 2V 26088 Routine Exams 10/26/25 07:08 Completed Pending at discharge Category Date Time Status C-arm Mini 57748 Routine Exams 10/29/25 13:13 Ordered Radiology Impressions Chest X-Ray 10/25/25 16:14 IMPRESSION: 1. No acute cardiopulmonary findings. 2. Partially visualized displaced proximal right humerus fracture. Hip/Pelvis X-Ray 10/25/25 16:14 IMPRESSION: 1. Nondisplaced fractures involving the right inferior pubic ramus, parasymphyseal pubis, and acetabulum. 2. 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 Cervical Spine CT 10/25/25 16:28 IMPRESSION: No acute cervical spine fracture. Chest/Abdomen/Pelvis CT 10/25/25 16:28 IMPRESSION: 1. Comminuted fracture of the right proximal humerus with surrounding inflammatory changes. 2. No intrathoracic posttraumatic changes. IMPRESSION: 1. Fracture of bilateral pubic bones, bilateral inferior pubic rami, left superior pubic ramus and right puboacetabular junction with mild amount of blood in the extraperitoneal pre bladder region. 2. Severe degenerative hip changes. COMMENTS: Consistent with the [employer]'s Incidental Findings Committee white paper (J Am Claire Radiol 2018): Any incidental renal lesion less than 1 cm or classified as too small to characterize, or any incidental cystic renal lesion characterized as simple-appearing, is likely benign. No follow-up imaging is recommended for these lesions per consensus recommendations based on imaging criteria. Forearm X-Ray 10/25/25 18:12 IMPRESSION: Acute distal radial and ulnar fractures as above. Wrist X-Ray 10/26/25 07:08 IMPRESSION: 1. Fracture distal radius showing improved alignment since the prior exam. Ulnar styloid fracture. Hand X-Ray 10/26/25 12:25 IMPRESSION: 1. Comminuted nondisplaced fracture of the first proximal phalanx. 2. Moderate degenerative changes. Head CT 10/26/25 20:51 IMPRESSION: No large territorial infarct or intracranial bleed. ASSESSMENT: ASPECTS ([place] Stroke Program Early CT Score) is 10. ADDENDUM: 10/26/252123 THIS REPORT CONTAINS FINDINGS THAT MAY BE CRITICAL TO PATIENT CARE. The findings were verbally communicated via telephone conference with AMILCAR BARBOSA at 9:21 PM JUNIOR SALES ASSISTANT on 10/26/2025. The findings were acknowledged and understood. Head/Neck CTA 10/26/25 21:13 IMPRESSION: 1. No large vessel occlusion. 2. No large territorial infarct or intracranial bleed. IMPRESSION: No significant arterial stenosis. REFERENCES: NASCET CRITERIA. The degree of stenosis in the cervical segment of the internal carotid artery is based on NASCET criteria. Normal is no stenosis. Mild is less than 50% stenosis. Moderate is 50-69% stenosis. Severe is 70% to 99% stenosis. Total occlusion is no detectable patent lumen. Pelvis X-Ray 10/31/25 09:24 IMPRESSION: Multiple pelvic fractures without significant change identified. Microbiology 10/26/25 09:18 Urine,Clean Catch Urine Culture - Final Laboratory Results WBC 8.34 10^3/uL (3.29-11.43) 11/02/25 03:33 RBC 2.68 10^6/uL (3.85-5.65) L 11/02/25 03:33 Hgb 8.30 g/dL (11.27-16.99) L 11/02/25 03:33 Hct 25.7 % (37-53) L 11/02/25 03:33 MCV 95.9 fl (82-101) 11/02/25 03:33 MCH 31.0 pg (27-33) 11/02/25 03:33 MCHC 32.3 g/dL (30-55) 11/02/25 03:33 RDW 13.8 % (12.1-15.1) 11/02/25 03:33 Plt Count 349 10^3/cmm (157-399) 11/02/25 03:33 MPV 10.6 fL (7.4-10.4) H 11/02/25 03:33 Neut % (Auto) 66.4 % 11/01/25 03:49 Lymph % (Auto) Not Reportable 11/02/25 03:33 [place] % (Auto) Not Reportable 11/02/25 03:33 Eos % (Auto) 3.4 % 11/01/25 03:49 Baso % (Auto) 0.5 % 11/01/25 03:49 Neut # (Auto) 6.41 10^3/uL (1.8-7.7) 11/01/25 03:49 Lymph # (Auto) Not Reportable 11/02/25 03:33 [place] # (Auto) Not Reportable 11/02/25 03:33 Eos # (Auto) 0.3 10^3/uL (0.0-0.8) 11/01/25 03:49 Baso # (Auto) 0.1 10^3/uL (0.0-0.1) 11/01/25 03:49 Nucleated RBC % (auto) 0.2 % 11/01/25 03:49 Total Counted 100 (0-100) 11/02/25 03:33 Atypical Lymphs % 0.0 % (0-5) 11/02/25 03:33 Segmented Neutrophils 68 % 11/02/25 03:33 Band Neutrophils Not Reportable 11/02/25 03:33 Absolute Lymphocytes 0.8 10^3/cmm (1.2-3.4) L 11/02/25 03:33 Lymphocytes (Manual) 10 % 11/02/25 03:33 Monocytes (Manual) 8.0 % 11/02/25 03:33 Absolute Monocytes 0.7 10^3/cmm (0.1-0.6) H 11/02/25 03:33 Eosinophils (Manual) 7 % 11/02/25 03:33 Absolute Eosinophils 0.6 10^3/cmm (0.0-0.7) 11/02/25 03:33 Basophils (Manual) 0.0 % 11/02/25 03:33 Absolute Basophils 0.0 10^3/cmm (0.0-0.2) 11/02/25 03:33 Metamyelocytes 5.0 % 11/02/25 03:33 Myelocytes 2.0 % 11/02/25 03:33 Nucleated RBCs # 0.0 /100WBC 11/01/25 03:49 Platelet Estimate Normal (Normal) 11/02/25 03:33 Giant Platelets Trace 11/02/25 03:33 Anisocytosis Trace 11/02/25 03:33 PT 13.70 SECONDS (12.1-14.9) 10/25/25 18:17 INR 0.98 (0.8-1.2) 10/25/25 18:17 Sodium 139 mmol/L (136-145) 11/02/25 03:33 Potassium 3.3 mmol/L (3.5-5.1) L 11/02/25 03:33 Chloride 103 mmol/L (98-107) 11/02/25 03:33 Carbon Dioxide 27 mmol/L (22-29) 11/02/25 03:33 Anion Gap 12.3 (5-19) 11/02/25 03:33 BUN 18 mg/dL (8-23) 11/02/25 03:33 Creatinine 0.9 mg/dL (0.7-1.2) 11/02/25 03:33 GFR Calculation Not Reportable 11/02/25 03:33 Glucose 141 mg/dL (65-115) H 11/02/25 03:33 POC Glucose 173 mg/dL (70-110) H 10/27/25 19:04 Calculated Osmolality 292 mOsm/kg (285-295) 11/02/25 03:33 Calcium 8.6 mg/dL (8.5-10.5) 11/02/25 03:33 Magnesium 2.0 mg/dL (1.7-2.3) 11/01/25 03:49 Total Bilirubin 0.5 mg/dL (0.15-1.2) 10/25/25 16:19 AST 30 U/L (0-40) 10/25/25 16:19 ALT 24 U/L (0-41) 10/25/25 16:19 Alkaline Phosphatase 85 U/L (40-130) 10/25/25 16:19 Creatine Kinase 365 U/L (39-308) H* 10/31/25 04:02 Total Protein 6.6 g/dL (6.6-8.7) 10/25/25 16:19 Albumin 4.0 g/dL (3.5-5.2) 10/25/25 16:19 Globulin 2.6 g/dL (1.3-4.6) 10/25/25 16:19 Urine Color Yellow (Yellow) 10/26/25 09:18 Urine Appearance Cloudy (CLEAR) A 10/26/25 09:18 Urine pH 5.0 (5-7) 10/26/25 09:18 Ur Specific [place] 1.054 (1.005-1.030) H 10/26/25 09:18 Urine Protein 1+ (Negative) A 10/26/25 09:18 Urine Glucose (UA) Negative (Normal) 10/26/25 09:18 Urine Ketones Trace (Negative) 10/26/25 09:18 Urine Blood 2+ (Negative) A 10/26/25 09:18 Urine Nitrate Negative (Negative) 10/26/25 09:18 Urine Bilirubin Negative (Negative) 10/26/25 09:18 Urine Urobilinogen 1.0 mg/dL (Negative) 10/26/25 09:18 Ur Leukocyte Esterase 1+ (Negative) A 10/26/25 09:18 Urine RBC 21-50 /hpf (0-2) H 10/26/25 09:18 Urine WBC 21-50 /hpf (0-5) H 10/26/25 09:18 Ur Squamous Epith Cells 0-5 /hpf (0-5) 10/26/25 09:18 Amorphous Sediment Not Reportable 10/26/25 09:18 Urine Bacteria None seen /hpf (NONE) 10/26/25 09:18 Hyaline Casts 47.99 /lpf 10/26/25 09:18 Blood Type O Positive 10/28/25 07:20 Rho(D) Type Rh positive 10/28/25 07:20 Antibody Screen Negative 10/28/25 07:20 Crossmatch See Detail 10/28/25 07:20 Vitals Last Vital Signs Temp 97.4 F L 11/02/25 07:33 Pulse 63 11/02/25 07:33 Resp 18 11/02/25 07:33 BP 171/81 11/02/25 07:33 Pulse Ox 97 11/02/25 07:33 O2 Del Method Room Air 11/02/25 07:33 O2 Flow Rate 1 10/29/25 18:20 FiO2 2 10/26/25 21:42 Discharge Plan Discharge Patient Disposition: Xfer SNF Condition: Stable Prescriptions: New ondansetron 4 mg tablet,disintegrating 4 mg PO Q8H 3 Days Qty: 9 0RF oxycodone 5 mg tablet 5 mg PO Q6H PRN (Reason: pain postop) 7 Days Qty: 28 0RF enoxaparin [Lovenox] 30 mg/0.3 mL syringe 30 mg SUBCUT DAILY 35 Days Qty: 10.5 0RF calcium carbonate-vitamin D3 [Calcium 600 + D(3)] 600 mg-10 mcg (400 unit) tablet 1 tab PO DAILY 30 Days Qty: 30 0RF polysaccharide iron complex [Ferrex 150] 150 mg iron Capsule 150 mg PO BIDWM Qty: 60 0RF ciprofloxacin HCl 500 mg Tablet 500 mg PO BID@0900,2100 Qty: 6 0RF amlodipine 10 mg tablet 10 mg PO DAILY Qty: 30 0RF Continued Bioflex 094-55-01-40 mg Tablet 1 tab PO DAILY Men's 50 Plus Multivitamin 400-20-370 mcg Tablet 1 tab PO DAILY Discontinued ibuprofen [Advil] 200 mg Tablet 400 mg PO Q6H PRN (Reason: Fever Or Pain) Development Architect OK for DC: Orthopedics Discharge Order = DC NOW: Discharge Order (Routine); Ordered 11/02/25 Ordered By: Huber Pompa Referrals: [facility] [Outside] Brady Dupree DO [Physician, Orthopedics] - 11/11/25 1:30 pm Patient Instructions: Acute Wound Care (DC), Opioid Safety, Post Anesthesia Care, Patient Portal & Finn Instructions Activity Restrictions/Additional Instructions: Orthopedic discharge instructions: Postop right distal Radius and right proximal humerus fracture, Orthopedic discharge instructions: Patient should be nonweightbearing to the right upper extremity extremity Proximal humerus incision, may change the Silverlon bandages if greater than 50% saturated otherwise may take these off on postoperative day [address] new Silverlon bandages Maintain splint until follow-up Keep splint clean dry and intact Elevation and ice as needed for pain and swelling Encourage elbow and finger range of motion Take pain medication as prescribed Take antinausea medication as needed Supplement with Citracal vitamin D for bone health and healing Follow-up with Dr. Dupree in the office in 2 weeks Contact the office for any questions or concerns Discharge instructions for bilateral pubic rami fractures and left thumb fracture Patient to wear thumb spica brace May weight-bear through the thumb spica brace when kept on and trying to ambulate Bilateral lower extremities may weight-bear as tolerate, utilize cane crutch or walker, keep pain below threshold Ice as needed for pain and swelling Pain medication as prescribed Take DVT prophylaxis as prescribed i.e. Lovenox Follow-up in the orthopedic office in 2 weeks Discharge Attestations Time Spent in Discharge Care*: greater than 30 min Specific Discharge Activities: educating patient, educating and/or supporting family/caregiver, discussing with pcp/other providers, discussing with rn case mgr/social workers/dc planners, documenting/other paperwork and evaluating patient/reviewing data Status at Discharge: Cognitive status at discharge: cognitively intact , Behavioral status at discharge: cooperative , Functional status at discharge: independent ambulation , Overall status at discharge: patient is back to baseline Quality Metrics Clinical Quality Measures [ No reported AMI, CVA or VTE this stay] Coding Level of Care Code Critical Care >/= 30 minutes Critical care time (in minutes): 45 The high probability of a clinically significant, sudden or life threatening deterioration, as referenced in this documentation, required my full and direct attention, intervention and personal management. The critical care time shown is in addition to time spent performing any reported separately billable procedures and includes the following: [x] Data and vital sign review and interpretation [x ] Patient assessment, examination and intervention [x] Medication orders and management [x] Patient/Family updates as able [x] Care Coordination and Documentation. Diagnoses Right humeral fracture S42.301A Encounter type: initial encounter Fracture alignment: displaced Fracture type: closed Humerus Location: proximal Closed bilateral fracture of pubic rami, initial encounter S32.591A; S32.592A Encounter type: initial encounter Fracture type: closed Closed nondisplaced fracture of right acetabulum, unspecified portion of acetabulum, initial encounter S32.401A Encounter type: initial encounter Fracture alignment: nondisplaced Fracture type: closed Sublocation of acetabulum: unspecified portion of acetabulum Closed fracture of distal end of right radius, unspecified fracture morphology, initial encounter S52.501A Encounter type: initial encounter Fracture morphology: unspecified fracture morphology Fracture type: closed Radius location: distal Closed fracture of distal end of right ulna, unspecified fracture morphology, initial encounter S52.601A Encounter type: initial encounter Fracture morphology: unspecified fracture morphology Fracture type: closed Fracture of thumb, left, closed S62.502A
[2025-11-02 11:21] VITALS: BP 164/71; PULSE 64; RESP 20; O2SAT 96
[2025-11-02 13:11] VITALS: BP 164/74; PULSE 64; RESP 96; TEMP 36.3; O2SAT 96
== END 2025-11-02 13:00 | disposition skilled nursing facility (03) | DRG 492 ==
LOC: ER 17:07 → MEDSURG 20:17 → CSU 10-26 22:06 → MEDSURG 10-27 06:06
PROVIDERS: Emergency Medicine; Internal Medicine; Student in an Organized Health Care Education/Training Program; Admitting Provider Family Medicine; Emergency Provider Emergency Medicine; Visit Provider Student in an Organized Health Care Education/Training Program
PROC: 0PSF36Z Reposition Right Humeral Shaft with Intramedullary Internal Fixation Device, Percutaneous Approach (ICD-10-PCS; CPT 24516; principal; 2025-10-26 17:10)
PROC: 0PSH04Z Reposition Right Radius with Internal Fixation Device, Open Approach (ICD-10-PCS; principal; 2025-10-29 16:45)
DX: S42.201A Unspecified fracture of upper end of right humerus, initial encounter for closed fracture (principal); S32.401A Unspecified fracture of right acetabulum, initial encounter for closed fracture; S32.592A Other specified fracture of left pubis, initial encounter for closed fracture; S32.591A Other specified fracture of right pubis, initial encounter for closed fracture; S52.501A Unspecified fracture of the lower end of right radius, initial encounter for closed fracture; S52.601A Unspecified fracture of lower end of right ulna, initial encounter for closed fracture; N17.9 Acute kidney failure, unspecified; M62.82 Rhabdomyolysis; N39.0 Urinary tract infection, site not specified; R44.3 Hallucinations, unspecified; D62 Acute posthemorrhagic anemia; S62.502A Fracture of unspecified phalanx of left thumb, initial encounter for closed fracture; W01.0XXA Fall on same level from slipping, tripping and stumbling without subsequent striking against object, initial encounter; E87.5 Hyperkalemia; N18.9 Chronic kidney disease, unspecified; D69.6 Thrombocytopenia, unspecified
CPT/HCPCS: 29125; 36415; 36416; 36430; 51702; 70450; 70496; 70498; 71045; 71260; 72125; 72170; 72190; 73030; 73090; 73100; 73110; 73130; 73502; 74177; 76000; 80048; 80053; 81001; 82550; 82962; 83735; 85007; 85025; 85610; 86850; 86900; 86920; 87086; 90471; 90714; 96372; 96374; 96375; 96376; 97110; 97162; 97167; 97530; 97535; 99285; C1713; J0131; J0690; J0696; J1100; J1171; J1650; J1885; J2250; J2270; J2312; J2405; J2704; J2795; J3010; J3490; J7030; J9999; L3809; P9016

== ENCOUNTER → 2025-11-11 13:53 | Outpatient (BNVA) | payer MEDICARE, SELFPAY | PROVIDERS: Visit Provider Physician Assistant | DX: Z98.890 Other specified postprocedural states (principal); Z46.89 Encounter for fitting and adjustment of other specified devices | CPT/HCPCS: 73060; 73110 ==

== ENCOUNTER 2025-11-11 14:45 | Outpatient (CLI) | payer MEDICARE, SELFPAY | END 2025-11-11 14:46 | disposition home or self-care (01) | LOC: SOT 14:46 | PROVIDERS: Visit Provider Physician Assistant | DX: Z46.89 Encounter for fitting and adjustment of other specified devices (principal); S52.601A Unspecified fracture of lower end of right ulna, initial encounter for closed fracture; S52.501A Unspecified fracture of the lower end of right radius, initial encounter for closed fracture; W10.8XXA Fall (on) (from) other stairs and steps, initial encounter | CPT/HCPCS: 97760; L3906 ==